=== PATIENT | female | born 1945 | race Caucasian/White ===

== ENCOUNTER → 2017-08-22 | Outpatient (CLI) | payer OTHER ==
[~2017-08-22] MED LIST: ACCUNEB SO1.25 MG/1; ADULT LOW DOSE81 MG PO; ALDACTONE25 MG PO; ALLERGY PLUS-S1 EACH PO; ASPIRIN EC81 M1 PO; ATORVASTATIN CA40 MG PO; AUGMENTIN 500-1 EACH PO; AUGMENTIN 875875 MG; BENADRYL25 MG PO; BENTYL 10 MG CA10 M1 PO; BRILINTA90 MG PO; CALCIUM 600 +1 EA11 PO; CALCIUM PO; CENTRUM SILVER1 EAC4 PO; CIPRO500 MG PO; CLARITIN10 MG PO; COMPAZINE10 MG PO; COREG3.125 MG PO; COREG6.25 MG PO; COUMADIN 5 MG TA5 M1 PO; DILTIAZEM 24HR360 M1 PO; DILTIAZEM 24HR420 MG PO; ENOXAPARIN100 MG/11 SUBQ; FENTANYL 1100 MCG/HR TRANSDERM; FENTANYL PATCH75 MCG TP; FISH OIL 1,001000 M2 PO; FISH OIL 1,001000 MG PO; FISH OIL 500 M1 EAC2 PO; FISH OIL500 MG PO; FLORINEF ACETA0.1 MG PO; FLUOXETINE HCL40 MG PO; GLUCOPHAGE850 MG PO; GLUCOTROL XL10 MG PO; HYDROCODON-ACE1 EA11 PO; HYDROCODON-ACE1 EACH PO; HYDROCODONE-AP1 EAC6 PO; HYTRIN 1 MG CAP1 MG; HYTRIN 5 M5 MG/1 CAP PO; INDERAL XL120 MG PO; IRON325 PO; K-DUR 20 MEQ T20 MEQ PO; K-DUR10 MEQ PO; LASIX 40 MG TAB40 M2 PO; LISINOPRIL10 MG PO; LISINOPRIL40 MG PO; LOPRESSOR25 PO; MAGNESIUM OXID400 MG PO; MAGNESIUM400 MG PO; MAGOX 400400 MG PO; MOBIC15 MG PO; MULTIVITAMINS1 EAC7 PO; MYSOLINE250 M1 PO; MYVITALIFE1 EACH PO; NEURONTIN 300300 M1 PO; NITROGLYCERIN0.4 MG SUBLING; NORCO 5-325 TA1 EACH PO; NOVOLOG100 UNIT/1 SQ; NYSTATIN 1100000 U/M TOP; OMEGA-31000 M1 PO; OMEPRAZOLE40 MG PO; PERCOCET PO; POTASSIUM20 PO; PRILOSEC40 MG PO; PRIMIDONE 250M250 M1 PO; PRIMIDONE50 MG PO; PRINIVIL40 MG PO; PROAIR HFA8.5 GM INH; PROZAC 20 MG20 M1 PO; PROZAC40 MG PO; QUESTRAN LIGHT P4 GM; QUESTRAN PACKET4 GM PO; REQUIP4 MG PO; SIMVASTATIN40 MG PO; TESSALON PERLE100 MG; TESSALON PERLE100 MG PO; THERA-M CAPLET1 EAC1 PO; TIAZAC420 MG PO; TOPROL XL25 MG PO; VITAMIN B-12500 MCG PO; WARFARIN SODIUM5 MG PO; ZETIA10 MG PO; [UNRECOGNIZED DRUG - OTHER]
== END ==
LOC: M.WC 02:13
DX: E11.622 Type 2 diabetes mellitus with other skin ulcer (principal); L98.491 Non-pressure chronic ulcer of skin of other sites limited to breakdown of skin; L89.893 Pressure ulcer of other site, stage 3; E11.65 Type 2 diabetes mellitus with hyperglycemia; I11.0 Hypertensive heart disease with heart failure; I50.9 Heart failure, unspecified; I25.10 Atherosclerotic heart disease of native coronary artery without angina pectoris; E78.2 Mixed hyperlipidemia; K21.9 Gastro-esophageal reflux disease without esophagitis; M19.90 Unspecified osteoarthritis, unspecified site; G47.30 Sleep apnea, unspecified; J45.909 Unspecified asthma, uncomplicated; F32.9 Major depressive disorder, single episode, unspecified

== ENCOUNTER → 2017-09-05 | Outpatient (CLI) | payer OTHER | LOC: M.WC 02:22 | DX: L89.893 Pressure ulcer of other site, stage 3 (principal); E11.622 Type 2 diabetes mellitus with other skin ulcer; L98.491 Non-pressure chronic ulcer of skin of other sites limited to breakdown of skin; E78.2 Mixed hyperlipidemia; J45.909 Unspecified asthma, uncomplicated; M19.90 Unspecified osteoarthritis, unspecified site; K21.9 Gastro-esophageal reflux disease without esophagitis; I11.0 Hypertensive heart disease with heart failure; I50.9 Heart failure, unspecified; I25.10 Atherosclerotic heart disease of native coronary artery without angina pectoris; G47.30 Sleep apnea, unspecified; F32.9 Major depressive disorder, single episode, unspecified; Z68.35 Body mass index [BMI] 35.0-35.9, adult ==

== ENCOUNTER → 2017-09-12 | Outpatient (CLI) | payer OTHER | LOC: M.WC 01:41 | DX: L89.93 Pressure ulcer of unspecified site, stage 3 (principal); E11.622 Type 2 diabetes mellitus with other skin ulcer; L98.491 Non-pressure chronic ulcer of skin of other sites limited to breakdown of skin; E78.2 Mixed hyperlipidemia; J45.909 Unspecified asthma, uncomplicated; M19.90 Unspecified osteoarthritis, unspecified site; K21.9 Gastro-esophageal reflux disease without esophagitis; E78.5 Hyperlipidemia, unspecified; I11.0 Hypertensive heart disease with heart failure; I50.9 Heart failure, unspecified; I25.10 Atherosclerotic heart disease of native coronary artery without angina pectoris; G47.30 Sleep apnea, unspecified; F32.9 Major depressive disorder, single episode, unspecified; Z68.35 Body mass index [BMI] 35.0-35.9, adult ==

== ENCOUNTER → 2017-09-26 | Outpatient (CLI) | payer OTHER | LOC: M.WC 09-19 10:30 | DX: L89.893 Pressure ulcer of other site, stage 3 (principal); E11.622 Type 2 diabetes mellitus with other skin ulcer; L98.491 Non-pressure chronic ulcer of skin of other sites limited to breakdown of skin; I10 Essential (primary) hypertension; E78.2 Mixed hyperlipidemia; J45.909 Unspecified asthma, uncomplicated; M19.90 Unspecified osteoarthritis, unspecified site; K21.9 Gastro-esophageal reflux disease without esophagitis; E78.5 Hyperlipidemia, unspecified; I11.0 Hypertensive heart disease with heart failure; I50.9 Heart failure, unspecified; I25.10 Atherosclerotic heart disease of native coronary artery without angina pectoris; G47.30 Sleep apnea, unspecified; F32.9 Major depressive disorder, single episode, unspecified; Z68.35 Body mass index [BMI] 35.0-35.9, adult ==

== ENCOUNTER → 2017-10-17 | Outpatient (CLI) | payer OTHER | LOC: M.WC 10-10 10:00 | DX: E11.622 Type 2 diabetes mellitus with other skin ulcer (principal); L98.491 Non-pressure chronic ulcer of skin of other sites limited to breakdown of skin; L89.892 Pressure ulcer of other site, stage 2; E78.2 Mixed hyperlipidemia; B37.2 Candidiasis of skin and nail; J45.909 Unspecified asthma, uncomplicated; K21.9 Gastro-esophageal reflux disease without esophagitis; I11.0 Hypertensive heart disease with heart failure; I50.9 Heart failure, unspecified; I25.10 Atherosclerotic heart disease of native coronary artery without angina pectoris ==

== ENCOUNTER → 2018-02-25 | Outpatient (CLI) | payer OTHER ==
--- NOTE | 2018-02-25 16:15 | 2DMMODE ---
[place] [address] 2 D/M-MODE ECHOCARDIOGRAM Name: VICKI BONILLA Room: [facility]#: [id number] Admission: 02/25/18 Attend Phys: Екатерина Dyre, Discharge: Date of : 47 Date of Service: 02/25/18 1615 Report #: [id number] THIS REPORT FOR: //name// APPROVED REPORT Study performed: 02/25/2018 14:01:14 EXAM: Comprehensive 2D, Doppler, and color-flow Echocardiogram Patient Location: Out-Patient Status: routine BSA: 1.71 HR: 82 bpm BP: 114/57 mmHg Other Information Study Quality: Good Indications Aortic Valve Disease 2D Dimensions LVEF(%): 80.56 (>50%) IVSd: 10.84 (7-11mm) LVOT Diam: 20.08 (18-24mm) LVDd: 42.92 mm PWd: 9.95 (7-11mm) Ascending Ao: 30.73 (22-36mm) LVDs: 21.93 (25-40mm) Aortic Root: 25.31 mm Reinoso's LVEF: 80.56 % Volumes Left Atrial Volume (Systole) LA ESV Index: 22.00 mL/m2 Aortic Valve AoV Peak Boone.: 2.07 m/s AO Peak Gr.: 17.17 mmHg LVOT Max P.57 mmHg AO Mean Gr.: 9.52 mmHg LVOT Mean P.95 mmHg LVOT Max V: 0.94 m/s AO V2 VTI: 46.20 cm LVOT Mean V: 0.65 m/s KASHMIR (VTI): 1.71 cm2 LVOT V1 VTI: 24.90 cm Mitral Valve E/A Ratio: 0.68 MV Decel. Time: 211.34 [place] [address] 2 D/M-MODE ECHOCARDIOGRAM Name: VICKI BONILLA Nitish Room: [facility]#: [id number] Admission: 02/25/18 Attend Phys: Екатерина Dyer, Discharge: Date of : 47 Date of Service: 02/25/18 1615 Report #: [id number] MV E Max Boone.: 0.85 m/s MV PHT: 61.29 ms MVA (PHT): 3.59 cm2 TDI E/Lateral E': 8.50 E/Medial E': 9.44 Medial E' Boone.: 0.09 m/s Lateral E' Boone.: 0.10 m/s Pulmonary Valve PV Peak Boone.: 1.24 m/s PV Peak Gr.: 6.16 mmHg Tricuspid Valve RAP Estimate: 5.00 mmHg TR Peak Gr.: 29.85 mmHg RVSP: 34.85 mmHg PA Pressure: 34.85 mmHg Left Ventricle The left ventricle is normal size. There is normal LV segmental wall motion. Mild concentric left ventricular hypertrophy. Left ventricular systolic function is normal. The left ventricular ejection fraction is within the normal range. LVEF is 60-65%. Grade I - abnormal relaxation pattern. Right Ventricle The right ventricle is normal size. The right ventricular systolic function is normal. Atria Left atrium is borderline dilated. The right atrium size is normal. Aortic Valve Aortic valve is mildly calcified. No aortic regurgitation is present. Mild aortic stenosis. Mitral Valve The mitral valve is normal in structure. Mild mitral regurgitation. No evidence of mitral valve stenosis. Tricuspid Valve The tricuspid valve is normal in structure. Mild tricuspid regurgitation. Pulmonic Valve The pulmonary valve is normal in structure. [place] [address] 2 D/M-MODE ECHOCARDIOGRAM Name: VICKI BONILLA Room: [facility]#: [id number] Admission: 02/25/18 Attend Phys: Екатерина Dyer, Discharge: Date of : 47 Date of Service: 02/25/18 1615 Report #: [id number] valvular regurgitation. Great Vessels The aortic root is normal in size. IVC is normal in size and collapses with >50% inspiration Pericardium There is no pericardial effusion. <Conclusion> LVEF is 60-65%. There is normal LV segmental wall motion. Mild concentric left ventricular hypertrophy. Left atrium is borderline dilated. Mild aortic stenosis. No aortic regurgitation is present. Mild tricuspid regurgitation. <ELECTRONICALLY SIGNED> By: Sony Bolton MD, FACC 02/25/18 1615 1615 1615 Sony Bolton MD, FACC /INF
== END ==
LOC: M.CRD 13:47
DX: I08.1 Rheumatic disorders of both mitral and tricuspid valves (principal); I25.10 Atherosclerotic heart disease of native coronary artery without angina pectoris; I42.9 Cardiomyopathy, unspecified

== ENCOUNTER → 2019-10-07 | Outpatient (CLI) | payer MEDICARE ==
--- NOTE | 2019-10-07 14:41 | 2DMMODE ---
[place] [address] 2 D/M-MODE ECHOCARDIOGRAM Name: VICKI BONILLA Room: [facility].#: [id number] Admission: 10/07/19 Attend Phys: Neeraj Mercado MD Discharge: Date of : 47 Date of Service: 10/07/19 1440 Report #: [id number] THIS REPORT FOR: cc: Jabier Justin MD, K. Gay MD Holkins, John M. MD [facility] ~ APPROVED REPORT Study performed: 10/07/2019 12:58:40 EXAM: Comprehensive 2D, Doppler, and color-flow Echocardiogram Patient Location: Out-Patient BSA: 1.79 HR: 60 bpm BP: 140/80 mmHg Other Information Study Quality: Fair Indications Atrial Fibrillation 2D Dimensions IVSd: 12.06 (7-11mm) LVOT Diam: 19.41 (18-24mm) LVDd: 41.54 mm PWd: 10.48 (7-11mm) Ascending Ao: 31.16 (22-36mm) LVDs: 23.19 (25-40mm) Aortic Root: 25.54 mm Volumes Left Atrial Volume (Systole) LA ESV Index: 19.50 mL/m2 Aortic Valve AoV Peak Boone.: 1.91 m/s AO Peak Gr.: 14.54 mmHg LVOT Max P.50 mmHg AO Mean Gr.: 7.98 mmHg LVOT Mean P.78 mmHg LVOT Max V: 0.94 m/s AO V2 VTI: 45.62 cm LVOT Mean V: 0.62 m/s KASHMIR (VTI): 1.51 cm2 LVOT V1 VTI: 23.34 cm Mitral Valve E/A Ratio: 0.61 [place] [address] 2 D/M-MODE ECHOCARDIOGRAM Name: VICKI BONILLA [id number] Admission: 10/07/19 Attend Phys: Neeraj Mercado MD Discharge: Date of : 47 Date of Service: 10/07/19 1440 Report #: [id number] MV Decel. Time: 236.20 ms MV E Max Boone.: 0.59 m/s MV PHT: 68.50 ms MVA (PHT): 3.21 cm2 TDI E/Lateral E': 6.56 E/Medial E': 5.36 Medial E' Boone.: 0.11 m/s Lateral E' Boone.: 0.09 m/s Pulmonary Valve PV Peak Boone.: 1.00 m/s PV Peak Gr.: 3.97 mmHg Tricuspid Valve RAP Estimate: 5.00 mmHg TR Peak Gr.: 20.23 mmHg RVSP: 25.23 mmHg PA Pressure: 25.23 mmHg Left Ventricle The left ventricle is normal size. There is normal LV segmental wall motion. There is normal left ventricular wall thickness. Left ventricular systolic function is normal. The left ventricular ejection fraction is within the normal range. LVEF is 55-60%. Grade I - abnormal relaxation pattern. Right Ventricle The right ventricle is normal size. The right ventricular systolic function is normal. Atria The left atrium size is normal. The right atrium size is normal. Aortic Valve Moderate aortic valve sclerosis. No aortic regurgitation is present. No hemodynamically significant valvular aortic stenosis. Mitral Valve Mild mitral annular calcification. There is no mitral valve regurgitation noted. No evidence of mitral valve stenosis. Tricuspid Valve The tricuspid valve is normal in structure. Mild tricuspid regurgitation[place] [address] 2 D/M-MODE ECHOCARDIOGRAM Name: VICKI BONILLA Room: [facility]#: [id number] Admission: 10/07/19 Attend Phys: Neeraj Mercado MD Discharge: Date of : 47 Date of Service: 10/07/19 1440 Report #: [id number] The pulmonary valve is normal in structure. Mild pulmonic regurgitation. Great Vessels The aortic root is normal in size. IVC is normal in size and collapses >50% with inspiration. Pericardium There is no pericardial effusion. <Conclusion> The left ventricle is normal size. There is normal left ventricular wall thickness. Left ventricular systolic function is normal. The left ventricular ejection fraction is within the normal range. LVEF is 55-60%. Grade I - abnormal relaxation pattern. The right ventricle is normal size. The left atrium size is normal. Moderate aortic valve sclerosis. No aortic regurgitation is present. No hemodynamically significant valvular aortic stenosis. Mild mitral annular calcification. There is no mitral valve regurgitation noted. No evidence of mitral valve stenosis. The tricuspid valve is normal in structure. Mild tricuspid regurgitation. IVC is normal in size and collapses >50% with inspiration. There is no pericardial effusion. There is normal LV segmental wall motion. <ELECTRONICALLY SIGNED> By: David De La Cruz MD, FACC 10/07/19 1440 1440 1440 David De La Cruz MD, FACC /INF
== END ==
LOC: M.CRD 12:54
DX: I08.3 Combined rheumatic disorders of mitral, aortic and tricuspid valves (principal); I48.91 Unspecified atrial fibrillation

== ENCOUNTER 2020-03-28 21:45 | Inpatient (IN) | payer MEDICARE ==
[~2020-03-28] VITALS: Ht 139.7 cm; Wt 99.8 kg
[~2020-03-28 21:45] MED LIST changes: +DURAGESIC1 EAC3 TRANSDERM; -FENTANYL 1100 MCG/HR TRANSDERM
[2020-03-28 21:52] VITALS: BP 143/93
[2020-03-28 22:48] LABS: HEMATOCRIT 40.3 % (37.0-47.0); HEMOGLOBIN 13.7 gm/dL (12.0-15.0); MCH 32.7 pg (26.0-34.0); MCHC 34.1 g/dL (28.0-37.0); MCV 95.9 fL (80.0-100.0); MPV 7.2 fl. (7.2-11.1); NUCLEATED RBCS 0 /100WBC; PLATELET COUNT* 201 thou/uL (150-400); RDW-CV 13.8 % (10.5-14.5); WBC 10.7 thou/uL (4.0-11.0)
[2020-03-28 22:58] LABS: CALCIUM 9.1 mg/dL (8.5-10.1); CREATININE 1.1 mg/dL (0.6-1.3); POTASSIUM 4.1 mmol/L (3.5-5.1)
[2020-03-28 23:08] LABS: INR 1.1; PROTIME 11.3 Seconds (9.20-11.50)
[2020-03-28 23:11] LABS: ALBUMIN 3.4 g/dL (3.4-5.0); MAGNESIUM 1.6 mg/dL (1.8-2.4); TOTAL BILIRUBIN 0.4 mg/dL (<0.1-1.0)
[2020-03-28 23:28] LABS: ABSOLUTE EOSINOPHILS 0.1 thou/uL (0.0-0.7); ABSOLUTE LYMPHOCYTES 0.6 thou/uL (0.8-5.3); ABSOLUTE MONOCYTES 0.6 thou/uL (0.0-1.2); ABSOLUTE NEUTROPHILS 9.3 thou/uL (1.6-8.1)
[2020-03-28 23:29] LABS: PLATELET ESTIMATE ADEQUATE
[2020-03-29 01:05] LABS: URINE BILIRUBIN NEGATIVE (Negative); URINE BLOOD 3+ (Negative); URINE CLARITY CLEAR; URINE COLOR YELLOW; URINE GLUCOSE-RANDOM NEGATIVE (Negative); URINE KETONES NEGATIVE (Negative); URINE LEUKOCYTES-REFLEX NEGATIVE (Negative); URINE NITRITE-REFLEX NEGATIVE (Negative); URINE PROTEIN 2+ (Negative); URINE SPECIFIC GRAVITY <= 1.005 (1.005-1.030); URINE UROBILINOGEN 0.2 E.U./dl (0.2-1.0)
[2020-03-29 02:00] LABS: COARSE GRANULAR CASTS 0-3 Few /LPF (None Seen); SQUAMOUS 0-3 Few /LPF (0-3)
[2020-03-29 02:01] LABS: AMORPHOUS URATES Few /LPF (None Seen); BACTERIA-REFLEX 1-9 Few /HPF (None Seen); URINE RBC 3-10 Few /HPF (0-2); URINE WBC-REFLEX 0-5 Rare /HPF (0-5)
[2020-03-29 03:27] VITALS: BP 143/89
[2020-03-29 04:00] VITALS: BP 142/88
--- NOTE | 2020-03-29 08:01 | NUR ---
RECEIVED REPORT FROM CARLOS TRACEY. PT TRANSFERRED TO 209. PT A&OX4. VSS. 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 ADMISSION HISTORY AND PHYSICAL ASSESSMENT COMPLETED AND CHARTED. ORIENTED TO ROOM & CALL LIGHT. PT ON O2 AT 2L NC. PT TRACING SR ON TELE. PT WITH WOUNDS ON BILATERAL GROIN, LEFT HIP, LEFT BUTTOCK &SACRAL-CLEANED & PAT DRY. PHOTOGRAPH TAKEN AND COVERED WITH MEPILEX. WOUND CARE CONSULT. FALL PRECAUTIONS IN PLACE. CALL LIGHT WITHIN REACH
[2020-03-29 08:41] VITALS: BP 122/85
[2020-03-29 09:21] LABS: CHOLESTEROL 179 mg/dL (<200); HDL CHOLESTEROL 59 mg/dL (>40); LDL CHOLESTEROL 111 mg/dL (<100); TRIGLYCERIDE 46 mg/dL (<150); VLDL 9 mg/dL (<40)
[2020-03-29 09:23] LABS: SERUM ASSESSMENT Clear
--- NOTE | 2020-03-29 09:47 | EKG ---
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
--- NOTE | 2020-03-29 09:48 | EKG ---
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1945 Requested By: Екатерина Dyer Order Number: [id number] Reading MD: Neeraj Mercado Measurements Intervals [place] Rate: 101 P: 50 [place]: 159 QRS: -71 QRSD: 81 T: 228 QT: 401 QTc: 520 Interpretive Statements Sinus tachycardia with short pr interval Consider right atrial enlargement Inferior infarct, old Probable anterior infarct, age indeterminate Prolonged QT interval Baseline wander in lead(s) V1 Compared to ECG 03/28/2020 22:50:42 Prolonged QT interval now present Myocardial infarct finding still present Electronically Signed On 03-29-2020 9:48:13 CDT by Neeraj Mercado [email or web address] <ELECTRONICALLY SIGNED> By: Neeraj Mercado MD, [facility] 03/29/20947 9 9 Neeraj Mercado MD, [facility] /EPI
--- NOTE | 2020-03-29 11:47 | NUR ---
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 H/o CHF, HTN, back pain d/t sciatica and herniated disc. Seen for pressure ulcers, bilat groin, Lt hip, Lt buttock. RD ordered Ferny for wound healing. Labs: BG elevated 206-148, alb 3.4. Heart Healthy diet. Wt has increased over the years, but is near usual range, 215#. Meds noted. Altered nutrition-related lab values R/T glucose AEB labs above. GOALS: tight BG control, Ferny BID for wound healing. Consider Mild risk.
--- NOTE | 2020-03-29 12:23 | 2DMMODE ---
[place] [address] 2 D/M-MODE ECHOCARDIOGRAM Name: VICKI BONILLA Room: [address] ADM IN R.#: [id number] Admission: 03/29/20 Attend Phys: Aston Long, Discharge: Date of : 47 Date of Service: 03/29/20 1223 Report #: [id number] THIS REPORT FOR: cc: Jabier Justin MD, K. Gay MD Blick,Neeraj Prieto MD [facility] ~ APPROVED REPORT Study performed: 03/29/2020 09:54:59 EXAM: Limited 2D Echocardiogram Patient Location: In-Patient Room #: [facility] Status: routine BSA: 1.81 HR: 100 bpm BP: 122/85 mmHg Rhythm: NSR Other Information Study Quality: Good Indications Acute IN Left Ventricle Left ventricle is mildly dilated. severe hypokinesis of the mid and distal anteroseptal wall and apex There is normal left ventricular wall thickness. Left ventricular systolic function is mildly decreased. LVEF is 25-30%. Right Ventricle The right ventricle is normal size. The right ventricular systolic function is normal. Atria The left atrium size is normal. The right atrium size is normal. Aortic Valve Moderate aortic valve sclerosis. Mitral Valve Moderate mitral annular calcification. The mitral valve [place] [address] 2 D/M-MODE ECHOCARDIOGRAM Name: VICKI BONILLA Room: [address] IN M.R.#: [id number] Admission: 03/29/20 Attend Phys: Aston Long, Discharge: Date of : 47 Date of Service: 03/29/20 1223 Report #: [id number] Tricuspid Valve The tricuspid valve is normal in structure. Pulmonic Valve Pulmonic valve is not well visualized. Great Vessels The aortic root is normal in size. IVC is normal in size and collapses >50% with inspiration. Pericardium There is no pericardial effusion. <Conclusion> LVEF is 25-30%. severe hypokinesis of the mid and distal anteroseptal wall and apex Moderate aortic valve sclerosis. <ELECTRONICALLY SIGNED> By: Neeraj Mercado MD, FACC 03/29/20 1223 122 22 Neeraj Mercado MD, FACC /INF
[2020-03-29 13:04] VITALS: BP 157/72
--- NOTE | 2020-03-29 13:50 | NUR ---
Pt is A&O. Resides at home with her cousin. Pt assists with ADLs, completes IADLs. Pt uses a walker or wc for mobility. No home o2. Pt has a lift chair recliner. Hx of [facility]. Hx of [facility]. Supportive son. PT/OT evals ordered. Pt is hopeful that [place] be able [place], CM to discuss dispo once therapy evals completed. Pt to have Echo today. Following.
--- NOTE | 2020-03-29 16:06 | NUR ---
WOUND NURSE: PATIENT SEEN TO ADDRESS 2 WOUND OPENINGS IN EACH GROIN. BOTH WITH RED, NONGRANULATING TISSUE IN THE WOUND BEDS, SMALL AMOUNT OF SEROUSANGUINOUS DRAINAGE. YEAST ODER IN IN INGUINAL FOLDS. CLEANSED WITH WOUND CLEANSER AND GAUZE, APPLIED AQUACEL AG UNDER BORDERED FOAM DRESSING. THIS TO BE CHANGED 3X/WEEK AND PRN. PATIENT INSTRUCTED ON REPORTABLE S/S TO REPORT IF OCCURS. PATIENT STATES SHE UNDERSTANDS.
[2020-03-29 17:08] VITALS: BP 94/51
--- NOTE | 2020-03-29 19:01 | NUR ---
PT IS ALERT AND ORIENTED X3-4 FORGETFUL AT TIMES 2L NC SOA NOTED RLE PAIN WITH IMMOBILIZER, ORDER FOR PRN IMMOBILIZER NOW BUT PT IS VERY WEAK AND CANNOT USE THAT LEG TO AMBULATE OR MOVE CONT WITH SCHEDULED PAIN MEDS AND FENTANYL PATCH SON CAME TO VISIT CALL LIGHT IN REACH
[2020-03-30] VITALS: BP 89/44
--- NOTE | 2020-03-30 02:10 | NUR ---
ASSUMED CARE OF PT At 1900. PT IS ALERT AND ORIENTED. VSS. DEBORAH. PT IS A Q2 TURN BUT SHE REFUSES TO TURN. PT EDUCATED ON THE CONSEQUENCES OF NOT TURNING. PT CONTINUES TO REFUSE BEING TURNED. PT HAS A ADLER IN PLACE. PT IS IN SINUS RYTHM ON THE TELEMETRY. PT IS RESTING COMFORTABLY IN BED. RESPIRATIONS ARE EVEN AND NONLABORED. WILL CONTINUE TO MONITOR PT.
[2020-03-30 04:00] VITALS: BP 96/47
--- NOTE | 2020-03-30 11:34 | NUR ---
ASSUMED CARE OF PATIENT THIS AM AT 0730. PATIENT IS ALERT AND ORIENTED X 4. SHE DENIES PAIN THIS AM. TELE SHOWS NSR. PATIENT ENCOURAGED TO TURN Q 2 HRS AND WITH ADLS. WILL CONTINUE TO MONITOR PATIENT COMFORT. NO FALLS OR INJURY.
[2020-03-30 12:16] VITALS: BP 97/45
--- NOTE | 2020-03-30 12:53 | NUR ---
CM spoke with Pt and cousin in room. Acute rehab consult placed. Therapies to eval. Pt open to ARU, but refuses skilled, cousin wants what is best for Pt, even if it is skilled. Will await therapy evals. Per Pt, if no ARU, then home with HH. Cousin is available at [facility].
[2020-03-30 13:07] VITALS: BP 97/45
[2020-03-30 16:25] VITALS: BP 100/40
[2020-03-30 19:30] VITALS: BP 103/56
[2020-03-31] VITALS (7 sets, daily range): BP systolic 90–137; BP diastolic 41–63
--- NOTE | 2020-03-31 05:40 | NUR ---
PT SLEPT WELL THIS SHIFT. ALERT AND ORIENTED. VSS ON 2L O2. MEDS GIVEN ORDERED. PAIN MEDS GIVEN THIS SHIFT. PT REFUSED Q2 TURNS THIS SHIFT. EDUCATION PROVIDED. FALL PRECAUTION IN PLACE. ADLER FOR VOIDING. WILL CONTINUE TO MONITOR.
[2020-03-31 08:10] LABS: CALCIUM 9.2 mg/dL (8.5-10.1); CREATININE 1.4 mg/dL (0.6-1.3); POTASSIUM 4.8 mmol/L (3.5-5.1)
[2020-03-31] MEDS ORDERED: CARVEDILOL3.125 MG PO (09:47)
[2020-03-31] MEDS ORDERED: GLUCOTROL5 MG PO (09:47)
[2020-03-31] MEDS ORDERED: LISINOPRIL2.5 MG PO (09:47)
[2020-03-31] MEDS ORDERED: DEMADEX20 MG PO (09:47)
--- NOTE | 2020-03-31 11:27 | NUR ---
Pt medically stable to dc, spoke with , plan was to dc home with HH, CM went to speak with Pt and she stated that she wants to work with PT first. Pt does not qualify for acute rehab, would need skilled, Pt had been adament about not going to skilled, but wavered today when CM informed for dc. PT to see this morning, plan home later with HH, unless Pt opts for skilled. Following.
--- NOTE | 2020-03-31 14:52 | NUR ---
CM spoke with Pt's cousin, cousin reports covid exposure and need to quarantine for 14 days, to be tested tomorrow, so Pt is unable to return to the home, because Pt is not independent. Discussed with Pt, Pt now in agreement with going to skilled, faxed referral to [facility] per Pt's request, facility able to accept, pending insurance auth. CM updated Pt's cousin.
--- NOTE | 2020-03-31 17:31 | NUR ---
PATIENT HAS BEEN ON BEDREST TODAY. SHE DOES HAVE A ADLER AND USES THE BEDPAN FOR BOWEL MOVEMENTS. SHE HAD A LARGE BM TODAY. SHE USES HER CALL LIGHT TO MAKE HER NEEDS KNOWN. SHE HAS BEEN REFUSING TO TURN TODAY AND I DISCUSSED IT WITH HER AND EXPLAINED TO HER THAT SHE WAS GOING TO GET BED SORES IF WE DONT TURN HER. SHE CONTINUES TO REFUSE. I WAS TOLD IN REPORT THAT SHE WAS REFUSING TO TURN ALSO. SHE DOES HAVE A PILLOW UNDER HER LEGS TO KEEP HER HEELS OFF THE BED. SHE IS ALERT AND ORIENTED X 4 AND DOES USE THE CALL LIGHT TO MAKE HER NEEDS KNOWN.
[2020-04-01] VITALS: BP 129/78
[2020-04-01 04:00] VITALS: BP 115/62
[2020-04-01 05:24] LABS: CREATININE 1.3 mg/dL (0.6-1.3); POTASSIUM 4.5 mmol/L (3.5-5.1)
--- NOTE | 2020-04-01 07:04 | NUR ---
PT WAS UP ALL NIGHT WATCHING TV. HER CHOICE. ALERT AND ORIENTED. VSS ON 2L. PT ALLOWED SOME TURNS THIS SHIFT. MEDS GIVEN ORDERED. FALL [PRECAUTION IN PLACE. ANTICIPATING DC TO [facility] TODAY. WILL CONTINUE TO MONITOR.
[2020-04-01 08:00] VITALS: BP 154/76
[2020-04-01 10:35] VITALS: BP 97/45
--- NOTE | 2020-04-01 10:35 | NUR ---
RE: CHF medication education. Met with the pt to discuss heart failure medication. Discussion focues primarily on carvedilol, furosemide, spironolactone and sacubitril/valsartan. We discussed rationale for therapies and importance of compliance with prescribed regimen. We reviewed possible side effects and potential management strategies. Pt expressed understanding of issues discussed. Left medication information sheet with patient. Provided pharmacy contact information for any further questions or issues. Thank you.
--- NOTE | 2020-04-01 10:56 | NUR ---
Pt M/s. CM spoke with liaison from [facility], continue to await insurance auth for skilled. Following.
[2020-04-01 16:00] VITALS: BP 122/77
[2020-04-01 20:00] VITALS: BP 133/56
[2020-04-02 07:25] VITALS: BP 97/45
[2020-04-02 07:45] VITALS: BP 146/86
[2020-04-02 08:20] VITALS: BP 146/86
--- NOTE | 2020-04-02 14:50 | NUR ---
PATIENT DISCHARGED TO [facility]. REPORT CALLED TO ARIAN. PATIENT BELONGINGS PACKED. COPY OF CHART AND DISCHARGE PAPERS GIVEN TO TRANSPORTER. IV AND ADLER CATHETER DISCONTINUED ORDERED. PATIENT TAKEN BY AMBULANCE AT THIS TIME.
[2020-04-03] MEDS ORDERED: DURAGESIC1 EAC3 TRANSDERM (10:30)
[2020-04-03] MEDS ORDERED: PERCOCET PO (10:30)
--- NOTE | 2020-04-04 17:03 | NUR ---
RECEIVED VM FROM CHERRY VENEGAS (DARRYN) INQUIRING ABOUT HOW TO ADD PATIENT'S SON AN ALTERNATE TO DPOA IN THE EVENT CHERRY IS UNAVAILBLE. LEFT VM FOR CHERRY TO GIVE CM NAIL GALVANIZER A RETURN CALL TO EXPLAIN WHAT CAN BE DONE TO ADD THAT INFORMATION. WILL AWAIT RETURN CALL.
== END 2020-04-02 14:50 | DRG 559 ==
LOC: M.ERS 21:45 → M.2W 03-29 02:38 → M.TBA-ER 03-29 02:38 → M.2W 03-29 02:41 → M.3W 04-01 19:47
PROVIDERS: Emergency Medicine; Registered Nurse; ADMIT Internal Medicine; ATTEND Internal Medicine
PROC: 2W3LX1Z Immobilization of Right Lower Extremity using Splint (ICD-10-PCS; principal; 2020-03-29)
DX: M97.11XA Periprosthetic fracture around internal prosthetic right knee joint, initial encounter (principal); I21.4 Non-ST elevation (NSTEMI) myocardial infarction; I50.23 Acute on chronic systolic (congestive) heart failure; Z68.43 Body mass index [BMI] 50.0-59.9, adult; I42.9 Cardiomyopathy, unspecified; I13.0 Hypertensive heart and chronic kidney disease with heart failure and stage 1 through stage 4 chronic kidney disease, or unspecified chronic kidney disease; G89.29 Other chronic pain; G56.00 Carpal tunnel syndrome, unspecified upper limb; E11.9 Type 2 diabetes mellitus without complications; Z96.653 Presence of artificial knee joint, bilateral; M19.90 Unspecified osteoarthritis, unspecified site; E78.5 Hyperlipidemia, unspecified; N18.3 Chronic kidney disease, stage 3 (moderate); J45.909 Unspecified asthma, uncomplicated; I48.0 Paroxysmal atrial fibrillation; E66.9 Obesity, unspecified; S82.831A Other fracture of upper and lower end of right fibula, initial encounter for closed fracture; W18.39XA Other fall on same level, initial encounter; I25.10 Atherosclerotic heart disease of native coronary artery without angina pectoris; M54.30 Sciatica, unspecified side; E78.00 Pure hypercholesterolemia, unspecified; Z95.5 Presence of coronary angioplasty implant and graft; Z90.49 Acquired absence of other specified parts of digestive tract; Z79.899 Other long term (current) drug therapy; Z79.51 Long term (current) use of inhaled steroids; Z88.1 Allergy status to other antibiotic agents; Z88.2 Allergy status to sulfonamides; Z79.01 Long term (current) use of anticoagulants; Z79.4 Long term (current) use of insulin; Z03.818 Encounter for observation for suspected exposure to other biological agents ruled out; Y93.89 Activity, other specified; Y92.89 Other specified places as the place of occurrence of the external cause; Y99.8 Other external cause status

== ENCOUNTER 2020-09-08 09:13 | Emergency (ER) | payer MEDICARE ==
[~2020-09-08] VITALS: Ht 139.7 cm; Wt 95.3 kg
[~2020-09-08 09:13] MED LIST changes: +CARVEDILOL3.125 MG PO; +DEMADEX20 MG PO; +GLUCOTROL5 MG PO; +LISINOPRIL2.5 MG PO
[2020-09-08 11:14] VITALS: BP 129/40
== END 2020-09-08 12:08 | disposition home or self-care (01) ==
LOC: M.ERS 09:13
DX: M25.552 Pain in left hip (principal); M25.562 Pain in left knee; M25.572 Pain in left ankle and joints of left foot; I11.0 Hypertensive heart disease with heart failure; I50.9 Heart failure, unspecified; E11.9 Type 2 diabetes mellitus without complications; E78.5 Hyperlipidemia, unspecified; Z90.89 Acquired absence of other organs; Z79.899 Other long term (current) drug therapy; Z88.1 Allergy status to other antibiotic agents; Z88.2 Allergy status to sulfonamides; Z88.8 Allergy status to other drugs, medicaments and biological substances; W18.39XA Other fall on same level, initial encounter; Y93.89 Activity, other specified; Y92.89 Other specified places as the place of occurrence of the external cause; Y99.8 Other external cause status

== ENCOUNTER 2021-04-27 20:28 | Inpatient (IN) | payer MEDICARE ==
[~2021-04-27] VITALS: Ht 139.7 cm; Wt 104.3 kg
--- NOTE | ~2021-04-27 | CON ---
[address] [address] CONSULTATION Name: VICKI BONILLA Room: [place] [address] ADM IN M.R.#: [id number] Admission: 04/28/21 Attend Phys: Greta Borja MD Discharge: Date of : 47 Report #: [id number] THIS REPORT FOR: cc: Jabier Justin MD, K. Gay MD Arakelov, Alexandr V. MD ~ DATE OF CONSULTATION: 05/05/2021 REFERRING PHYSICIAN: Dr. Elliott. REASON FOR CONSULTATION: Hyponatremia. HISTORY OF PRESENT ILLNESS: The patient is a 75-year-old lady, admitted to the hospital on 04/28/2021 with complaints of not feeling well, having some shortness of breath. She was found to be in respiratory failure, also found to have pneumonia, UTI. She also has history of diabetes, hypertension, overall debility, essential tremor and obesity. So she was admitted, started on diuretics. Her creatinine on admission was 1.6 and improved down to 0.8, but today is up to 1.3 again and serum sodium is 125. I was consulted for acute kidney injury and hyponatremia. PAST MEDICAL HISTORY: She also has history of Takotsubo cardiomyopathy with decreased left ventricular ejection fraction in the past with some recovery of this now. SOCIAL HISTORY: No tobacco or alcohol abuse. FAMILY HISTORY: No history of renal disease. REVIEW OF SYSTEMS: Positive for overall weakness. PHYSICAL EXAMINATION: GENERAL: Awake, alert, oriented. VITAL SIGNS: Reviewed. NECK: Fatty. LUNGS: Decreased air movements. CARDIOVASCULAR: Regular rate. ABDOMEN: Obese. LOWER EXTREMITIES: No edema. ASSESSMENT: 1. Hyponatremia, likely due to hydrochlorothiazide and Aldactone. 2. Acute kidney injury, likely due to over diuresis. 3. History of Takotsubo [place] [address] CONSULTATION Name: VICKI BONILLA Room: [address] IN [facility]#: [id number] Admission: 04/28/21 Attend Phys: Greta Borja MD Discharge: Date of : 47 Report #: [id number] 4. Urinary tract infection. PLAN: Agree with holding diuretics. No need of IV fluids for now, but we may have to do it if she remains volume depleted. A chest x-ray from 05/03/2021 reveals some bibasilar infiltrates, but no evidence of fluid overload. So again, my plan is right now to just hold her diuretics and follow labs. I also ordered urine for sodium and osmolality. By: 1314 1343Ashauna Loving MD /nt
[2021-04-27 20:40] VITALS: BP 127/57
[2021-04-27] MEDS ORDERED: ASA81BEC PO (20:52)
[2021-04-27] MEDS ORDERED: ARICEPT10 M1 PO (20:53)
[2021-04-27] MEDS ORDERED: PROZAC40 MG PO (20:53)
[2021-04-27 20:54] LABS: HEMATOCRIT 36.3 % (37.0-47.0); HEMOGLOBIN 11.9 gm/dL (12.0-15.0); MCH 31.8 pg (26.0-34.0); MCHC 32.8 g/dL (28.0-37.0); MPV 6.4 fl. (7.2-11.1); NUCLEATED RBCS 0 /100WBC; PLATELET COUNT* 177 thou/uL (150-400); RBC 3.74 mil/uL (4.20-5.00); RDW-CV 13.9 % (10.5-14.5); WBC 14.5 thou/uL (4.0-11.0)
[2021-04-27] MEDS ORDERED: SINGULAIR 10 MG10 MG PO (20:54)
[2021-04-27] MEDS ORDERED: LEVO-T50 MCG PO (20:54)
[2021-04-27] MEDS ORDERED: LASIX 40 MG TAB40 MG PO (20:54)
[2021-04-27] MEDS ORDERED: KLOR-CON M2020 MEQ PO (20:55)
[2021-04-27 21:02] LABS: CALCIUM 8.7 mg/dL (8.5-10.1); CREATININE 1.6 mg/dL (0.6-1.3); POTASSIUM 5.2 mmol/L (3.5-5.1)
[2021-04-27 21:13] LABS: ALBUMIN 3.2 g/dL (3.4-5.0); MAGNESIUM 2.1 mg/dL (1.8-2.4); TOTAL BILIRUBIN 0.4 mg/dL (<0.1-1.0); TOTAL PROTEIN 7.2 g/dL (6.4-8.2)
[2021-04-27 21:16] LABS: ABSOLUTE LYMPHOCYTES 0.4 thou/uL (0.8-5.3); ABSOLUTE MONOCYTES 1.5 thou/uL (0.0-1.2); ABSOLUTE NEUTROPHILS 12.6 thou/uL (1.6-8.1); PLATELET ESTIMATE ADEQUATE
[2021-04-28 00:42] LABS: URINE BILIRUBIN NEGATIVE (Negative); URINE BLOOD NEGATIVE (Negative); URINE CLARITY CLEAR; URINE COLOR YELLOW; URINE GLUCOSE-RANDOM NEGATIVE (Negative); URINE KETONES NEGATIVE (Negative); URINE NITRITE-REFLEX NEGATIVE (Negative); URINE PROTEIN NEGATIVE (Negative); URINE SPECIFIC GRAVITY 1.015 (1.005-1.030); URINE UROBILINOGEN 0.2 E.U./dl (0.2-1.0)
[2021-04-28 00:45] VITALS: BP 95/32
[2021-04-28 00:46] LABS: URINE LEUKOCYTES-REFLEX 2+ (Negative)
[2021-04-28 00:48] VITALS: BP 105/70
[2021-04-28 01:08] LABS: BACTERIA-REFLEX >30 Many /HPF (None Seen); CRYSTALS None Seen /LPF (None Seen); FINE GRANULAR CASTS 0-3 Few /LPF (None Seen); HYALINE CASTS 0-3 Few /LPF (None Seen); MUCUS 4-6 Moderate strn/LPF (None Seen); RENAL EPITHELIAL CELLS 0-3 Few /LPF (None Seen); SQUAMOUS 0-3 Few /LPF (0-3); URINE RBC 3-10 Few /HPF (0-2); URINE WBC-REFLEX >25 Many /HPF (0-5); WBC CLUMPS Few (None Seen)
[2021-04-28 04:00] VITALS: BP 98/43
--- NOTE | 2021-04-28 08:38 | EKG ---
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1945 Requested By: Flory Urias Order Number: [id number] MD: Neeraj Mercado Measurements Intervals [place] Rate: 86 P: 50 SD: 181 QRS: -42 QRSD: 92 T: 9 QT: 357 QTc: 427 Interpretive Statements Sinus rhythm Ventricular premature complex Inferior infarct, old Consider anterior infarct Compared to ECG 03/29/2020 08:30:41 Ventricular premature complex(es) now present Sinus tachycardia no longer present Short SD interval no longer present Prolonged QT interval no longer present Myocardial infarct finding still present Electronically Signed On 04-28-2021 8:38:41 CDT by Neeraj Mercado [email or web address] <ELECTRONICALLY SIGNED> By: Neeraj Mercado MD, [facility] 04/28/21837 32 32 Neeraj Mercado MD, [facility] /EPI
[2021-04-28 09:00] VITALS: BP 98/36
[2021-04-28 12:00] VITALS: BP 129/77
[2021-04-28] MEDS ORDERED: ADVAIR 500-501 EACH INH (17:15)
[2021-04-28 20:30] VITALS: BP 141/48
[2021-04-29] VITALS (7 sets, daily range): BP systolic 96–179; BP diastolic 50–79
[2021-04-29 05:14] LABS: HEMATOCRIT 35.8 % (37.0-47.0); HEMOGLOBIN 11.9 gm/dL (12.0-15.0); MCH 32.5 pg (26.0-34.0); MCHC 33.3 g/dL (28.0-37.0); MCV 97.5 fL (80.0-100.0); MPV 6.9 fl. (7.2-11.1); RBC 3.68 mil/uL (4.20-5.00); RDW-CV 14.1 % (10.5-14.5); WBC 9.8 thou/uL (4.0-11.0)
[2021-04-29 05:47] LABS: CALCIUM 9.4 mg/dL (8.5-10.1); CREATININE 1.2 mg/dL (0.6-1.3); POTASSIUM 4.6 mmol/L (3.5-5.1)
[2021-04-29 16:04] LABS: CALCIUM 8.9 mg/dL (8.5-10.1); CREATININE 1.1 mg/dL (0.6-1.3); PHOSPHORUS* 2.4 mg/dL (2.5-4.9)
[2021-04-29 17:01] LABS: BE 6.2 mmol/L (-2 to +3); pH 7.319 (7.340-7.450)
[2021-04-29 17:04] LABS: PCO2 68.8 mmHg (35.0-45.0)
[2021-04-30] VITALS: BP 144/58
[2021-04-30 00:01] LABS: BE 6.9 mmol/L (-2 to +3); PO2 102.1 mmHg (75.0-100.0); pH 7.303 (7.340-7.450)
[2021-04-30 00:05] LABS: PCO2 74.6 mmHg (35.0-45.0)
[2021-04-30 04:01] VITALS: BP 113/91
[2021-04-30 04:13] LABS: ABSOLUTE EOSINOPHILS 0.1 thou/uL (0.0-0.7); ABSOLUTE LYMPHOCYTES 0.6 thou/uL (0.8-5.3); ABSOLUTE MONOCYTES 0.8 thou/uL (0.0-1.2); ABSOLUTE NEUTROPHILS 6.1 thou/uL (1.6-8.1); BASOPHILS 0.2 %; EOSINOPHILS 1.7 %; HEMATOCRIT 31.7 % (37.0-47.0); HEMOGLOBIN 10.7 gm/dL (12.0-15.0); LYMPHOCYTES 7.3 %; MCH 32.5 pg (26.0-34.0); MCHC 33.8 g/dL (28.0-37.0); MCV 96.3 fL (80.0-100.0); MONOCYTES 10.4 %; MPV 6.6 fl. (7.2-11.1); NUCLEATED RBCS 0 /100WBC; PLATELET COUNT* 187 thou/uL (150-400); POLYS 80.4 %; RBC 3.29 mil/uL (4.20-5.00); RDW-CV 13.7 % (10.5-14.5); WBC 7.6 thou/uL (4.0-11.0)
[2021-04-30 04:21] LABS: ALBUMIN 2.6 g/dL (3.4-5.0); CALCIUM 9.4 mg/dL (8.5-10.1); CREATININE 1.1 mg/dL (0.6-1.3); POTASSIUM 4.3 mmol/L (3.5-5.1); TOTAL BILIRUBIN 0.3 mg/dL (<0.1-1.0); TOTAL PROTEIN 6.6 g/dL (6.4-8.2)
[2021-04-30] MEDS ORDERED: NEURONTIN 300M300 M2 PO (05:38)
[2021-04-30] MEDS ORDERED: GLIPIZIDE5 MG PO (06:55)
[2021-04-30] MEDS ORDERED: PERCOCET 7.5-31 EAC1 PO (06:57)
[2021-04-30] MEDS ORDERED: SPIRONOLACTONE25 MG PO (06:58)
[2021-04-30] MEDS ORDERED: TIZANIDINE HCL4 M2 PO (06:59)
[2021-04-30] MEDS ORDERED: ZYRTEC10 M5 PO (07:00)
[2021-04-30] MEDS ORDERED: PROTONIX40 M4 PO (07:02)
[2021-04-30 08:00] VITALS: BP 133/70
[2021-04-30 12:00] VITALS: BP 155/71
[2021-04-30 16:00] VITALS: BP 141/69
[2021-04-30 20:00] VITALS: BP 163/86
[2021-05-01] VITALS: BP 161/83
[2021-05-01 04:06] LABS: GLYCOHEMOGLOBIN (HGB A1C) 7.3 % (4.8-5.6)
[2021-05-01 04:17] LABS: ABSOLUTE EOSINOPHILS 0.2 thou/uL (0.0-0.7); ABSOLUTE LYMPHOCYTES 0.6 thou/uL (0.8-5.3); ABSOLUTE NEUTROPHILS 5.7 thou/uL (1.6-8.1); BASOPHILS 0.5 %; EOSINOPHILS 3.2 %; HEMATOCRIT 33.1 % (37.0-47.0); HEMOGLOBIN 10.8 gm/dL (12.0-15.0); LYMPHOCYTES 8.1 %; MCH 31.5 pg (26.0-34.0); MCHC 32.5 g/dL (28.0-37.0); MCV 96.7 fL (80.0-100.0); MONOCYTES 13.2 %; MPV 6.7 fl. (7.2-11.1); NUCLEATED RBCS 0 /100WBC; PLATELET COUNT* 200 thou/uL (150-400); RBC 3.42 mil/uL (4.20-5.00); RDW-CV 14.1 % (10.5-14.5); WBC 7.5 thou/uL (4.0-11.0)
[2021-05-01 04:20] LABS: BE 10.5 mmol/L (-2 to +3); pH 7.363 (7.340-7.450)
[2021-05-01 04:23] LABS: PCO2 69.7 mmHg (35.0-45.0); PO2 144.4 mmHg (75.0-100.0)
[2021-05-01 04:41] LABS: APTT 24.8 Seconds (25.0-31.3); PROTIME 10.6 Seconds (9.20-11.50)
[2021-05-01 04:44] VITALS: BP 155/89
[2021-05-01 04:50] LABS: ALBUMIN 2.7 g/dL (3.4-5.0); CALCIUM 10.4 mg/dL (8.5-10.1); CREATININE 0.8 mg/dL (0.6-1.3); POTASSIUM 4.2 mmol/L (3.5-5.1); TOTAL BILIRUBIN 0.3 mg/dL (<0.1-1.0); TOTAL PROTEIN 6.8 g/dL (6.4-8.2)
[2021-05-01 08:30] VITALS: BP 159/79
[2021-05-01 11:30] VITALS: BP 145/73
--- NOTE | 2021-05-01 14:40 | 2DMMODE ---
[place] [address] 2 D/M-MODE ECHOCARDIOGRAM Name: VICKI BONILLA Room: [facility]-1 ADM IN .R.#: [id number] Admission: 04/28/21 Attend Phys: Greta Borja, Discharge: Date of : 47 Date of Service: 05/01/21 1440 Report #: [id number] THIS REPORT FOR: cc: Jabier Justin MD, K. Gay MD Blick, David R. MD [facility] ~ APPROVED REPORT Study performed: 05/01/2021 11:53:10 EXAM: Comprehensive 2D, Doppler, and color-flow Echocardiogram Patient Location: In-Patient Room #: 227 Status: routine BSA: 1.86 HR: 90 bpm BP: 159/79 mmHg Rhythm: NSR Other Information Study Quality: Good Indications Dyspnea 2D Dimensions IVSd: 9.99 (7-11mm) LVOT Diam: 19.81 (18-24mm) LVDd: 46.96 mm PWd: 9.99 (7-11mm) Ascending Ao: 33.12 (22-36mm) LVDs: 27.29 (25-40mm) Aortic Root: 28.80 mm Aortic Valve AoV Peak Boone.: 2.09 m/s AO Peak Gr.: 17.43 mmHg LVOT Max P.05 mmHg AO Mean Gr.: 8.94 mmHg LVOT Mean P.16 mmHg LVOT Max V: 1.33 m/s AO V2 VTI: 34.91 cm LVOT Mean V: 0.81 m/s KASHMIR (VTI): 2.08 cm2 LVOT V1 VTI: 23.58 cm Mitral Valve E/A Ratio: 0.81 MV Decel. Time: 196.83 ms MV E Max Boone.: 0.92 m/[place] [address] 2 D/M-MODE ECHOCARDIOGRAM Name: VICKI BONILLA Room: [address] IN .R.#: [id number] Admission: 04/28/21 Attend Phys: Greta Borja, Discharge: Date of : 47 Date of Service: 05/01/21 1440 Report #: [id number] MV PHT: 57.08 ms MVA (PHT): 3.85 cm2 Pulmonary Valve PV Peak Boone.: 1.30 m/s PV Peak Gr.: 6.80 mmHg Tricuspid Valve RAP Estimate: 5.00 mmHg TR Peak Gr.: 38.92 mmHg RVSP: 43.00 mmHg PA Pressure: 43.00 mmHg Left Ventricle The left ventricle is normal size. There is normal LV segmental wall motion. There is normal left ventricular wall thickness. Left ventricular systolic function is normal. The left ventricular ejection fraction is within the normal range. LVEF is 55-60%. Grade I - abnormal relaxation pattern. Right Ventricle The right ventricle is normal size. The right ventricular systolic function is normal. Atria The left atrium size is normal. The right atrium size is normal. Aortic Valve Aortic valve is calcified. No aortic regurgitation is present. There is mild aortic valvular stenosis. Mitral Valve The mitral valve is normal in structure. There is no mitral valve regurgitation noted. No evidence of mitral valve stenosis. Tricuspid Valve The tricuspid valve is normal in structure. Mild tricuspid regurgitation. estimated pa pressure 45 mm Hg Pulmonic Valve Pulmonic valve is not well visualized. There is no pulmonic valvular regurgitation. Great Vessels The aortic root is normal in size. IVC is normal in size and collapses >50% [place] [address] 2 D/M-MODE ECHOCARDIOGRAM Name: VICKI BONILLA Room: [facility] IN [facility]#: [id number] Admission: 04/28/21 Attend Phys: Greta Borja, Discharge: Date of : 47 Date of Service: 05/01/21 1440 Report #: [id number] Pericardium There is no pericardial effusion. <Conclusion> LVEF is 55-60%. There is mild aortic valvular stenosis. Mild tricuspid regurgitation. estimated pa pressure 45 mm Hg <ELECTRONICALLY SIGNED> By: Neeraj Mercado MD, FAC 05/01/21 1440 1440 1440 Neeraj Mercado MD, FAC /INF
[2021-05-01 16:00] VITALS: BP 156/63
[2021-05-01 20:00] VITALS: BP 144/88
[2021-05-02] VITALS: BP 143/76
[2021-05-02 04:33] VITALS: BP 150/80
[2021-05-02 04:52] LABS: ABSOLUTE LYMPHOCYTES 0.6 thou/uL (0.8-5.3); ABSOLUTE MONOCYTES 0.6 thou/uL (0.0-1.2); ABSOLUTE NEUTROPHILS 5.3 thou/uL (1.6-8.1); BASOPHILS 0.3 %; EOSINOPHILS 0.2 %; HEMATOCRIT 33.6 % (37.0-47.0); HEMOGLOBIN 11.1 gm/dL (12.0-15.0); MCH 31.8 pg (26.0-34.0); MCHC 33.1 g/dL (28.0-37.0); MCV 95.8 fL (80.0-100.0); MONOCYTES 9.3 %; MPV 6.6 fl. (7.2-11.1); NUCLEATED RBCS 0 /100WBC; PLATELET COUNT* 201 thou/uL (150-400); POLYS 81.2 %; RDW-CV 13.6 % (10.5-14.5); WBC 6.5 thou/uL (4.0-11.0)
[2021-05-02 05:34] LABS: ALBUMIN 2.6 g/dL (3.4-5.0); CALCIUM 9.9 mg/dL (8.5-10.1); CREATININE 0.9 mg/dL (0.6-1.3); MAGNESIUM 1.3 mg/dL (1.8-2.4); POTASSIUM 3.8 mmol/L (3.5-5.1); TOTAL BILIRUBIN 0.4 mg/dL (<0.1-1.0); TOTAL PROTEIN 6.7 g/dL (6.4-8.2)
[2021-05-02 08:30] VITALS: BP 173/93
[2021-05-02 12:00] VITALS: BP 139/76
[2021-05-02 16:00] VITALS: BP 145/75
[2021-05-02 20:30] VITALS: BP 127/70
[2021-05-03 00:39] VITALS: BP 105/60
[2021-05-03 04:19] VITALS: BP 152/71
[2021-05-03 08:00] VITALS: BP 175/91
[2021-05-03 11:00] VITALS: BP 125/61
[2021-05-03 13:02] LABS: APTT 27.5 Seconds (25.0-31.3)
[2021-05-03 14:55] LABS: HEMATOCRIT 33.9 % (37.0-47.0); HEMOGLOBIN 11.4 gm/dL (12.0-15.0); MCH 32.2 pg (26.0-34.0); MCHC 33.6 g/dL (28.0-37.0); MCV 95.9 fL (80.0-100.0); NUCLEATED RBCS 0 /100WBC; PLATELET COUNT* 210 thou/uL (150-400); RBC 3.54 mil/uL (4.20-5.00); RDW-CV 13.7 % (10.5-14.5); WBC 6.9 thou/uL (4.0-11.0)
[2021-05-03 15:17] LABS: CALCIUM 10.5 mg/dL (8.5-10.1); POTASSIUM 3.9 mmol/L (3.5-5.1); TOTAL BILIRUBIN 0.4 mg/dL (<0.1-1.0); TOTAL PROTEIN 7.6 g/dL (6.4-8.2)
[2021-05-03 15:26] VITALS: BP 152/85
[2021-05-03 15:38] LABS: ABSOLUTE EOSINOPHILS 0.3 thou/uL (0.0-0.7); ABSOLUTE LYMPHOCYTES 1.4 thou/uL (0.8-5.3); ABSOLUTE MONOCYTES 0.5 thou/uL (0.0-1.2); ABSOLUTE NEUTROPHILS 4.7 thou/uL (1.6-8.1)
[2021-05-03 15:39] LABS: PLATELET ESTIMATE ADEQUATE
--- NOTE | 2021-05-03 17:35 | CON ---
[address] [address] CONSULTATION Name: VICKI BONILLA Room: [place] [address] ADM IN M.R.#: [id number] Admission: 04/28/21 Attend Phys: Greta Borja MD Discharge: Date of : 47 Report #: [id number] THIS REPORT FOR: cc: Jabier Justin MD, K. Gay MD Pervez, Adeel MD ~ DATE OF CONSULTATION: 05/01/2021 Consult has been requested by Dr. Moffett. INDICATION FOR CONSULTATION: Acute hypercarbic respiratory failure. HISTORY OF PRESENT ILLNESS: This is a 75-year-old female with past medical history as mentioned below. This does include a history of morbid obesity as well as bronchial asthma. She is reported to be a lifetime nonsmoker. She is not on oxygen or a CPAP or BiPAP at home long-term. Previously, she has had low left ventricular ejection fraction up to 30%. She does have a history of coronary artery disease; however, a lower left ventricular ejection fraction, per Cardiology service was more likely secondary to a stress-induced cardiomyopathy. The patient is now admitted on 04/28, presentation was with worsening weakness as well as shortness of breath and cough. She had altered mental status as well and was suspected of having a urinary tract infection. The patient was increasingly somnolent as well. The patient is able to provide only a limited history. REVIEW OF SYSTEMS: Obtained from the patient for 12 points is negative except as mentioned above. PAST MEDICAL HISTORY: Coronary artery disease status post stent, congestive heart failure; left ventricular ejection fraction up to 30% previously, suspected to be in fact from stress-induced cardiomyopathy; left ventricular ejection fraction now normalized, pulmonary artery systolic in the low 40s, morbid obesity, chronic back pain, bronchial asthma, tremors, colitis, bilateral knee surgery, status post tonsillectomy, left leg DVT, hypertension, hyperlipidemia, multiple falls, paroxysmal atrial fibrillation was considered to be too high risk for anticoagulation. SOCIAL HISTORY: Lifetime nonsmoker. No known history of heavy alcohol use or illegal drug use. CURRENT MEDICATIONS: List in [place] reviewed. HOME MEDICATIONS: List also in [facility] [place] [address] CONSULTATION Name: VICKI BONILLA Room: [address] IN [facility].#: [id number] Admission: 04/28/21 Attend Phys: Greta Borja MD Discharge: Date of : 47 Report #: [id number] FAMILY HISTORY: No pertinent family history. ALLERGIES: THEOPHYLLINE, GUAIFENESIN, SALSALATE. She has eye burning with doxycycline and blurry vision from erythromycin, likely this two are not allergies. SHE HAVE A RASH WITH SULFAMETHOXAZOLE. PHYSICAL EXAMINATION: GENERAL: She is slow to respond; however, is alert, awake and oriented. VITAL SIGNS: Pulse of 100 and a blood pressure 145/73. She is on 2 liters nasal cannula, is saturating in the low 90s around 93%, respiratory rate is around 18. She is afebrile with a temperature of 36.8. Body mass index 54. HEENT: Normocephalic and atraumatic. Pupils are equal and reactive. There is no throat erythema. Airway is Mallampati 4. NECK: Does not show raised JVP, asymmetry, mass or lymph nodes. CHEST: Symmetrical expansion on inspection and palpation. On auscultation, breath sounds are decreased to absent at bilateral lung bases. HEART: Regular. There is no murmur. ABDOMEN: Soft and nontender. LOWER EXTREMITIES: 2+ edema bilaterally. No calf tenderness. SKIN: Dry and intact. NEUROLOGIC: Moves all extremities bilaterally equally and spontaneously with no focal deficit identified. IMAGING: Chest x-rays from yesterday shows bilateral basilar opacities, likely pleural effusion and atelectasis. Infiltrate if present, will be masked by these findings. LABORATORY DATA: The patient's lab work is in [place] and this is also reviewed. Arterial blood gases show hypercarbic respiratory failure, which is acute on chronic. The patient's previous arterial blood gas from 2015 also shows a pCO2 of 53. ASSESSMENT AND PLAN: 1. Acute on chronic hypercarbic respiratory failure. The patient previously has not been on a BiPAP or Trilogy at home; however, there is pCO2 elevation on previous arterial blood gas going back up to 2015. Therefore, recommended setting up a Trilogy device upon discharge. Meanwhile, keep on BiPAP while sleep, while here. We will need to assess oxygen needs prior to discharge, may be off BiPAP when awake. 2. Fluid overload. I will go ahead and give her 2 doses of Lasix overnight. Reassess tomorrow. Likely will need more diuresis. We will need to watch her creatinine closely. She recently had acute renal failure. The patient likely has significant pleural effusions. We will define this better by doing a CT [address] [place] [address] CONSULTATION Name: VICKI BONILLA Room: [facility] ADM IN M.Nitish.#: [id number] Admission: 04/28/21 Attend Phys: Greta Borja MD Discharge: Date of : 47 Report #: [id number] chest without contrast. 3. Pulmonary infiltrate/possible UTI. CT as above. Currently on ceftriaxone. We will reassess once the CT is obtained. 4. Edema of lower extremities. Recommend also doing venous Dopplers, if the D-dimer is elevated. I ordered a D-dimer. The patient will be high risk of performing a CTA chest. Therefore for now, planning to hold off, but may need to be considered in case she fails to improve. 5. High aspiration risk. Agree with swallow evaluation, what is more important is that she should be sitting up when eating. 6. Hyperglycemia, on insulin sliding scale. 7. Recent acute renal failure earlier this admission. 8. Altered mental status and long-term narcotic use, suggest cutting back on narcotics/sedative medications to the extent feasible. 9. Deep venous thrombosis prophylaxis. She is on Lovenox. 10. Clostridium difficile prophylaxis. We will order Lactinex. Thanks for this consultation. <ELECTRONICALLY SIGNED> By: Balaji Hays MD 05/03/21 1735 1534 1940Balaji Hays MD /nt
[2021-05-03 20:00] VITALS: BP 140/68
[2021-05-04] VITALS: BP 101/43
[2021-05-04 04:00] VITALS: BP 126/65
[2021-05-04 04:34] LABS: ABSOLUTE EOSINOPHILS 0.2 thou/uL (0.0-0.7); ABSOLUTE LYMPHOCYTES 0.7 thou/uL (0.8-5.3); ABSOLUTE MONOCYTES 0.9 thou/uL (0.0-1.2); ABSOLUTE NEUTROPHILS 4.4 thou/uL (1.6-8.1); BASOPHILS 0.3 %; EOSINOPHILS 2.9 %; HEMATOCRIT 34.2 % (37.0-47.0); HEMOGLOBIN 11.5 gm/dL (12.0-15.0); LYMPHOCYTES 11.6 %; MCH 31.8 pg (26.0-34.0); MCHC 33.6 g/dL (28.0-37.0); MCV 94.6 fL (80.0-100.0); MONOCYTES 15.1 %; MPV 6.6 fl. (7.2-11.1); NUCLEATED RBCS 0 /100WBC; PLATELET COUNT* 219 thou/uL (150-400); POLYS 70.1 %; RBC 3.61 mil/uL (4.20-5.00); RDW-CV 13.6 % (10.5-14.5); WBC 6.3 thou/uL (4.0-11.0)
[2021-05-04 04:54] LABS: ALBUMIN 2.7 g/dL (3.4-5.0); CALCIUM 10.2 mg/dL (8.5-10.1); CREATININE 1.2 mg/dL (0.6-1.3); POTASSIUM 3.9 mmol/L (3.5-5.1); TOTAL BILIRUBIN 0.4 mg/dL (<0.1-1.0); TOTAL PROTEIN 6.9 g/dL (6.4-8.2)
[2021-05-04 05:18] LABS: BE 11.9 mmol/L (-2 to +3); PO2 84.9 mmHg (75.0-100.0); pH 7.479 (7.340-7.450)
[2021-05-04 05:19] LABS: PCO2 51.6 mmHg (35.0-45.0)
[2021-05-04 08:00] VITALS: BP 144/77
[2021-05-04 11:59] VITALS: BP 147/77
[2021-05-04 15:29] VITALS: BP 147/93
[2021-05-04 19:45] VITALS: BP 129/68
[2021-05-05] VITALS (7 sets, daily range): BP systolic 117–158; BP diastolic 64–83
[2021-05-05 13:02] LABS: ABSOLUTE BASOPHILS 0.1 thou/uL (0.0-0.2); ABSOLUTE EOSINOPHILS 0.1 thou/uL (0.0-0.7); ABSOLUTE LYMPHOCYTES 0.5 thou/uL (0.8-5.3); ABSOLUTE MONOCYTES 0.8 thou/uL (0.0-1.2); ABSOLUTE NEUTROPHILS 7.7 thou/uL (1.6-8.1); BASOPHILS 0.6 %; EOSINOPHILS 1.2 %; HEMATOCRIT 35.8 % (37.0-47.0); HEMOGLOBIN 12.1 gm/dL (12.0-15.0); LYMPHOCYTES 5.9 %; MCH 31.8 pg (26.0-34.0); MCHC 33.7 g/dL (28.0-37.0); MCV 94.2 fL (80.0-100.0); MONOCYTES 8.5 %; MPV 6.2 fl. (7.2-11.1); NUCLEATED RBCS 0 /100WBC; PLATELET COUNT* 232 thou/uL (150-400); POLYS 83.8 %; RDW-CV 13.7 % (10.5-14.5); WBC 9.2 thou/uL (4.0-11.0)
[2021-05-05 13:28] LABS: CALCIUM 10.8 mg/dL (8.5-10.1); CREATININE 1.3 mg/dL (0.6-1.3); MAGNESIUM 1.3 mg/dL (1.8-2.4); POTASSIUM 3.9 mmol/L (3.5-5.1)
[2021-05-05 23:06] LABS: MYCOPLASMA PNEUMONIA IgG 267 U/mL (0-99); MYCOPLASMA PNEUMONIA IgM <770 U/mL (0-769)
[2021-05-06 04:01] VITALS: BP 118/59
[2021-05-06 05:11] LABS: ABSOLUTE EOSINOPHILS 0.1 thou/uL (0.0-0.7); BASOPHILS 0.5 %; EOSINOPHILS 0.9 %; HEMATOCRIT 34.4 % (37.0-47.0); HEMOGLOBIN 11.5 gm/dL (12.0-15.0); LYMPHOCYTES 10.8 %; MCH 31.7 pg (26.0-34.0); MCHC 33.4 g/dL (28.0-37.0); MCV 94.9 fL (80.0-100.0); MONOCYTES 11.2 %; MPV 6.4 fl. (7.2-11.1); NUCLEATED RBCS 0 /100WBC; PLATELET COUNT* 237 thou/uL (150-400); POLYS 76.6 %; RBC 3.63 mil/uL (4.20-5.00); RDW-CV 13.7 % (10.5-14.5); WBC 9.1 thou/uL (4.0-11.0)
[2021-05-06 05:24] LABS: ALBUMIN 2.8 g/dL (3.4-5.0); CALCIUM 9.7 mg/dL (8.5-10.1); CREATININE 1.4 mg/dL (0.6-1.3); MAGNESIUM 1.2 mg/dL (1.8-2.4); POTASSIUM 4.3 mmol/L (3.5-5.1); TOTAL BILIRUBIN 0.4 mg/dL (<0.1-1.0); TOTAL PROTEIN 6.6 g/dL (6.4-8.2)
[2021-05-06 08:40] VITALS: BP 117/58
[2021-05-06 12:00] VITALS: BP 105/45
[2021-05-06 16:00] VITALS: BP 119/57
[2021-05-06 20:00] VITALS: BP 105/54
[2021-05-07 00:34] VITALS: BP 117/60
[2021-05-07 04:18] VITALS: BP 123/72
[2021-05-07 04:46] LABS: ABSOLUTE EOSINOPHILS 0.2 thou/uL (0.0-0.7); ABSOLUTE MONOCYTES 1.1 thou/uL (0.0-1.2); ABSOLUTE NEUTROPHILS 7.1 thou/uL (1.6-8.1); BASOPHILS 0.2 %; EOSINOPHILS 1.8 %; HEMATOCRIT 33.3 % (37.0-47.0); HEMOGLOBIN 11.2 gm/dL (12.0-15.0); LYMPHOCYTES 10.9 %; MCHC 33.6 g/dL (28.0-37.0); MCV 95.4 fL (80.0-100.0); MONOCYTES 11.8 %; MPV 6.6 fl. (7.2-11.1); NUCLEATED RBCS 0 /100WBC; PLATELET COUNT* 239 thou/uL (150-400); POLYS 75.3 %; RBC 3.49 mil/uL (4.20-5.00); RDW-CV 13.7 % (10.5-14.5); WBC 9.4 thou/uL (4.0-11.0)
[2021-05-07 04:52] LABS: CALCIUM 9.3 mg/dL (8.5-10.1); CREATININE 1.1 mg/dL (0.6-1.3); MAGNESIUM 1.9 mg/dL (1.8-2.4); POTASSIUM 4.1 mmol/L (3.5-5.1)
[2021-05-07] MEDS ORDERED: PLAVIX 75 MG TA75 M1 PO (07:21)
[2021-05-07] MEDS ORDERED: LEVOFLOXACIN750 MG PO (07:21)
[2021-05-07 12:00] VITALS: BP 125/66
[2021-05-07] MEDS ORDERED: PREDNISONE 10 M10 MG PO (12:26)
[2021-05-07] MEDS ORDERED: ELIQUIS5 M1 PO (13:44)
== END 2021-05-07 15:25 | DRG 177 ==
LOC: M.ERS 20:28 → M.TBA-ER 22:06 → M.2W 22:06
PROVIDERS: Emergency Medicine; Family Medicine; Internal Medicine; Internal Medicine Critical Care Medicine; Psychiatry & Neurology Neurology; ADMIT Internal Medicine; ATTEND Internal Medicine
PROC: 5A0935A Assistance with Respiratory Ventilation, Less than 24 Consecutive Hours, High Flow/Velocity Cannula (ICD-10-PCS; principal; 2021-05-07)
DX: J15.6 Pneumonia due to other Gram-negative bacteria (principal); N17.0 Acute kidney failure with tubular necrosis; J96.01 Acute respiratory failure with hypoxia; J96.22 Acute and chronic respiratory failure with hypercapnia; E87.1 Hypo-osmolality and hyponatremia; I82.409 Acute embolism and thrombosis of unspecified deep veins of unspecified lower extremity; I42.9 Cardiomyopathy, unspecified; N30.01 Acute cystitis with hematuria; E87.2 Acidosis; Z20.822 Contact with and (suspected) exposure to COVID-19; B96.89 Other specified bacterial agents as the cause of diseases classified elsewhere; E87.5 Hyperkalemia; Z88.8 Allergy status to other drugs, medicaments and biological substances; I25.10 Atherosclerotic heart disease of native coronary artery without angina pectoris; I48.0 Paroxysmal atrial fibrillation; Z79.01 Long term (current) use of anticoagulants; R73.9 Hyperglycemia, unspecified; E83.42 Hypomagnesemia; Z86.718 Personal history of other venous thrombosis and embolism; I11.0 Hypertensive heart disease with heart failure; I50.9 Heart failure, unspecified

== ENCOUNTER 2021-07-03 10:24 | Inpatient (IN) | payer MEDICARE ==
[~2021-07-03] VITALS: Ht 139.7 cm; Wt 101.6 kg
--- NOTE | ~2021-07-03 | PROC ---
[address] [address] PROCEDURE REPORT Name: VICKI BONILLA Room: [address] IN M.R.#: [id number] Admission: 07/03/21 Attend Phys: Greta Borja MD Discharge: Date of : 47 Report #: [id number] THIS REPORT FOR: cc: Jabier Justin MD, K. Gay MD [facility],Medical Records Staff ~ For GI report, please see the Provation report in Perceptive 7 content. By: 1217Medical Records Staff MICHELLE /SUZANNE
[~2021-07-03 10:24] MED LIST changes: +ADVAIR 500-501 EACH INH; +ARICEPT10 M1 PO; +ASA81BEC PO; +ELIQUIS5 M1 PO; +GLIPIZIDE5 MG PO; +KLOR-CON M2020 MEQ PO; +LASIX 40 MG TAB40 MG PO; +LEVO-T50 MCG PO; +LEVOFLOXACIN750 MG PO; +NEURONTIN 300M300 M2 PO; +PERCOCET 7.5-31 EAC1 PO; +PLAVIX 75 MG TA75 M1 PO; +PREDNISONE 10 M10 MG PO; +PROTONIX40 M4 PO; +SINGULAIR 10 MG10 MG PO; +SPIRONOLACTONE25 MG PO; +TIZANIDINE HCL4 M2 PO; +ZYRTEC10 M5 PO
[2021-07-03 10:25] VITALS: BP 193/97
[2021-07-03] MEDS ORDERED: NEURONTIN 300M300 M2 PO (10:32)
[2021-07-03] MEDS ORDERED: SPIRONOLACTONE25 M1 PO (10:39)
[2021-07-03 10:55] LABS: ABSOLUTE EOSINOPHILS 0.1 thou/uL (0.0-0.7); ABSOLUTE LYMPHOCYTES 0.5 thou/uL (0.8-5.3); ABSOLUTE MONOCYTES 0.5 thou/uL (0.0-1.2); BASOPHILS 0.6 %; EOSINOPHILS 2.4 %; HEMATOCRIT 34.3 % (37.0-47.0); HEMOGLOBIN 11.5 gm/dL (12.0-15.0); LYMPHOCYTES 10.2 %; MCH 31.6 pg (26.0-34.0); MCHC 33.5 g/dL (28.0-37.0); MCV 94.6 fL (80.0-100.0); MONOCYTES 9.7 %; MPV 6.1 fl. (7.2-11.1); NUCLEATED RBCS 0 /100WBC; PLATELET COUNT* 350 thou/uL (150-400); POLYS 77.1 %; RBC 3.62 mil/uL (4.20-5.00); WBC 5.2 thou/uL (4.0-11.0)
[2021-07-03 11:06] LABS: CALCIUM 10.4 mg/dL (8.5-10.1); CREATININE 0.8 mg/dL (0.6-1.3)
[2021-07-03 11:17] LABS: ALBUMIN 2.7 g/dL (3.4-5.0); TOTAL BILIRUBIN 0.4 mg/dL (<0.1-1.0); TOTAL PROTEIN 7.8 g/dL (6.4-8.2)
--- NOTE | 2021-07-03 12:58 | EKG ---
[place] [address] ELECTROCARDIOGRAM REPORT Name: VICKI BONILLA Room: [facility]#: [id number] Admission: 07/03/21 Attend Phys: Discharge: Date of : 47 Date of Service: 07/03/21 1044 Report #: [id number] THIS REPORT FOR: //name// [facility] ED Test Date: 2021-07-03 Test Time: 10:44:38 Pat Name: VICKI BONILLA Department: Room: Gender: [place]: : 1945 Requested By: Tang Ambrocio Order Number: [id number] MD: David De La Cruz Measurements Intervals [place] Rate: 102 P: OK: QRS: -37 QRSD: 79 T: 30 QT: 314 QTc: 409 Interpretive Statements Sinus tachycardia Abnormal R-wave progression, late transition Inferior infarct, old possible Baseline wander in lead(s) V2 Compared to ECG 04/27/2021 20:33:34 Sinus rate has increased Ventricular premature complex(es) no longer present Myocardial infarct finding still present Electronically Signed On 07-03-2021 12:58:31 WASTE MACHINE OFFBEARER by David De La Cruz [email or web address] <ELECTRONICALLY SIGNED> By: David De La Cruz MD, FACC 07/03/21 1258 1044 1044 David De La Cruz MD, FAC /EPI
[2021-07-03 17:14] VITALS: BP 157/81
[2021-07-03] MEDS ORDERED: CARVEDILOL12.5 MG PO (18:57)
[2021-07-03 21:30] VITALS: BP 137/83
[2021-07-03 23:09] LABS: INFLUENZA A ANTIGEN Negative (Negative); INFLUENZA B ANTIGEN Negative (Negative)
[2021-07-03 23:14] LABS: PO2 121.4 mmHg (75.0-100.0); pH 7.384 (7.340-7.450)
[2021-07-03 23:20] LABS: PCO2 63.8 mmHg (35.0-45.0)
[2021-07-03 23:28] VITALS: BP 137/83
[2021-07-03 23:41] VITALS: BP 160/76
[2021-07-04 02:15] VITALS: BP 167/72
[2021-07-04 04:28] LABS: ABSOLUTE LYMPHOCYTES 0.6 thou/uL (0.8-5.3); ABSOLUTE MONOCYTES 0.4 thou/uL (0.0-1.2); ABSOLUTE NEUTROPHILS 5.3 thou/uL (1.6-8.1); BASOPHILS 0.1 %; HEMATOCRIT 29.9 % (37.0-47.0); HEMOGLOBIN 9.9 gm/dL (12.0-15.0); LYMPHOCYTES 9.4 %; MCH 31.2 pg (26.0-34.0); MCHC 33.3 g/dL (28.0-37.0); MCV 93.6 fL (80.0-100.0); MONOCYTES 6.7 %; MPV 6.2 fl. (7.2-11.1); NUCLEATED RBCS 0 /100WBC; PLATELET COUNT* 344 thou/uL (150-400); POLYS 83.8 %; RBC 3.19 mil/uL (4.20-5.00); RDW-CV 13.7 % (10.5-14.5); WBC 6.3 thou/uL (4.0-11.0)
[2021-07-04 04:57] LABS: ALBUMIN 2.2 g/dL (3.4-5.0); CALCIUM 9.3 mg/dL (8.5-10.1); CREATININE 1.1 mg/dL (0.6-1.3); MAGNESIUM 1.4 mg/dL (1.8-2.4); POTASSIUM 4.3 mmol/L (3.5-5.1); TOTAL BILIRUBIN 0.3 mg/dL (<0.1-1.0); TOTAL PROTEIN 6.5 g/dL (6.4-8.2)
[2021-07-04 05:57] VITALS: BP 159/82
[2021-07-04 08:00] VITALS: BP 178/100
--- NOTE | 2021-07-04 08:14 | CON ---
[address] [address] CONSULTATION Name: VICKI BONILLA Room: [address] IN M.R.#: [id number] Admission: 07/03/21 Attend Phys: Greta Borja MD Discharge: Date of : 46 Report #: [id number] THIS REPORT FOR: cc: Jabier Justin MD, K. Gay MD Pervez, Adeel MD ~ DATE OF CONSULTATION: 07/03/2021 REQUESTING PHYSICIAN: Dr. Borja. INDICATION FOR CONSULTATION: Pulmonary infiltrates. HISTORY OF PRESENT ILLNESS: This is a 75-year-old female, past medical history is as mentioned below. Vaccinated with J&J Covid 19 vaccine this summer. Past history does include a history of Takotsubo cardiomyopathy with a low left ventricular ejection fraction. The patient had subsequent recovery of left ventricular ejection fraction. The patient was admitted to this hospital back in April. The patient at that time had acute hypercarbic respiratory failure. The patient also had ground-glass opacity/pulmonary infiltrates and the patient was treated with levofloxacin. We did recommend a BiPAP while asleep. The patient, however, was not able to tolerate. The patient is now admitted here again with complaints of increasing shortness of breath and cough. There is not much sputum production. The patient also has had generalized weakness. The patient apparently was transferred to a long-term care facility and eventually went home. She is not describing any upper respiratory complaints or increase in swelling of lower extremities or calf pain. The patient does have various generalized pain complaints and reports a decrease in appetite. She provides a limited history; however, review of systems for 12 points is negative except as mentioned above. PAST MEDICAL HISTORY: Takotsubo cardiomyopathy with left ventricular ejection fraction decreasing to 30% with subsequent normalization of left ventricular ejection fraction; coronary artery disease, status post stents; morbid obesity; chronic back pain; bronchial asthma; tremors; colitis; bilateral knee surgery; tonsillectomy; left leg DVT; hypertension; hyperlipidemia; multiple falls; paroxysmal atrial fibrillation. The patient was considered to be too high risk for anticoagulation; hypercarbic respiratory failure; nontolerant of BiPAP; longstanding narcotic use for back pain. SOCIAL HISTORY: Lifetime nonsmoker. No known history of heavy alcohol use or illegal drug use. CURRENT MEDICATIONS: [place] [address] CONSULTATION Name: VICKI BONILLA Room: [address]#: [id number] Admission: 07/03/21 Attend Phys: Greta Borja MD Discharge: Date of : 47 Report #: [id number] HOME MEDICATIONS: List also in [place] reviewed. FAMILY HISTORY: No pertinent family history. ALLERGIES: THERE ARE VARIOUS ALLERGIES LISTED IN THE RECORD. I AM NOT CERTAIN IF THESE IN FACT ARE TRUE ALLERGIES. SHE DOES REPORT HAVING HAD A RASH WITH SULFAMETHOXAZOLE. THERE HAS BEEN BLURRY VISION OR EYE BURNING WITH DOXYCYCLINE AND ERYTHROMYCIN, LIKELY DO NOT REPRESENT ALLERGY. THE PATIENT ALSO STATES THAT SHE IS ALLERGIC TO THEOPHYLLINE, GUAIFENESIN, AND SALSALATE. PHYSICAL EXAMINATION: GENERAL: She is alert, awake and oriented, did not appear to be in any distress at this time. VITAL SIGNS: Pulse of 109 and a blood pressure of 167/85, saturating 97% on 2 liters nasal cannula. Respiratory rate is 14. She is afebrile with a temperature of 36.3. Body mass index is elevated to 52. HEENT: Head is normocephalic and atraumatic. Pupils are equal and reactive. There is no throat erythema. NECK: Does not show raised JVP, asymmetry, mass or lymph nodes. CHEST: Symmetrical expansion on inspection and palpation. On auscultation, breath sounds are bilaterally equal. There are no added sounds. HEART: Regular. There is no murmur. ABDOMEN: Soft and nontender. EXTREMITIES: Lower extremities show trace edema. There is no calf tenderness. SKIN: Dry and intact. NEUROLOGIC: Moves all extremities bilaterally equally and spontaneously with no focal deficit identified. LABORATORY DATA: The patient's CT chest does show a large right-sided lobar infiltrate. The previous ground-glass/atypical infiltrates, which appear to have improved and this finding is new. The patient's lab work is also in [place] and this is reviewed. ASSESSMENT AND PLAN: 1. Pulmonary infiltrate. There is a large lobar infiltrate in the right lung. This is new compared with the previously seen infiltrates in April. This is consistent with bacterial infection. The patient previously received Levaquin. Therefore, for now, agree with doxycycline as well as Zosyn. We will follow response. We will do several other cultures and serologies. If she fails to improve, then I will have a low threshold of adding more methicillin-resistant Staphylococcus aureus coverage, note that she has previously had renal failure, so I will be cautious in giving her vancomycin. Potentially could be given linezolid; however, she is on Prozac. In case we do give her linezolid, we will [address] [address] CONSULTATION Name: VICKI BONILLA Room: [address] IN [place]#: [id number] Admission: 07/03/21 Attend Phys: Greta Borja MD Discharge: Date of : 47 Report #: [id number] Prozac. 2. Acute on chronic hypercarbic respiratory failure. There is significant pCO2 elevation on previous arterial blood gases, note that she is a lifetime nonsmoker; therefore, this is likely due to morbid obesity as well as the narcotic use. We will go ahead and obtain an arterial blood gas again and see where we stand. The patient regardless would benefit from BiPAP or Trilogy while asleep. Unfortunately, the patient previously was unable to tolerate. If there is a significant drop in pH on the arterial blood gas now, then we will attempt to reinstitute such therapy. Also, note that if the patient fails to respond to antibiotics therapy as above, then she will be a potential candidate for bronchoscopy. However, due to the presence of hypercarbic respiratory failure as well as narcotic use, this will be higher than average risk procedure. We will therefore follow response to antibiotics first. 3. History of chronic systolic heart failure secondary to Takotsubo cardiomyopathy and subsequent recovery of left ventricular ejection fraction. The patient appears to be well hydrated at this time, recommend discontinuing IV fluids. 4. Hypertension/tachycardia. The patient does take carvedilol at home, also takes narcotics. We will see if the blood pressure comes down with reinstitution of the home medications. If not, then suggest considering increasing the dose of her beta freddie. 5. Possible component of bronchospasm. She did receive 1 dose of Solu-Medrol earlier. I will go ahead and give her more steroids. The patient already is on low dose Xopenex. I did not change this at this time considering that she is not actively wheezing on exam. She will need more nebulized bronchodilators. We will see if heart rate and blood pressures come down otherwise I would still favor giving her more nebulized bronchodilators while increasing the dose of her beta freddie at the same time if needed. 6. Morbid obesity, likely has underlying obstructive sleep apnea as well. 7. History of diabetes. Blood glucose control per primary service. 8. History of hyponatremia, had significant hyponatremia during the last hospitalization. Sodium is towards the lower end of normal range at 133 at this time. 9. Long-term narcotic use. Thanks for this consultation. <ELECTRONICALLY SIGNED> By: Balaji Hays MD 07/04/21 0814 1519 1955Asofia Hays MD /nt
[2021-07-04 12:57] LABS: CALCIUM 9.5 mg/dL (8.5-10.1); CREATININE 1.1 mg/dL (0.6-1.3); MAGNESIUM 2.4 mg/dL (1.8-2.4); POTASSIUM 4.4 mmol/L (3.5-5.1)
[2021-07-04 13:04] LABS: APTT 28.6 Seconds (25.0-31.3); PROTIME 10.4 Seconds (9.20-11.50)
[2021-07-04 19:15] VITALS: BP 110/50
[2021-07-04 21:46] VITALS: BP 124/51
[2021-07-04 23:55] VITALS: BP 120/55
[2021-07-05 04:00] VITALS: BP 117/75
[2021-07-05 04:20] LABS: HEMATOCRIT 30.4 % (37.0-47.0); HEMOGLOBIN 9.9 gm/dL (12.0-15.0); MCH 31.4 pg (26.0-34.0); MCHC 32.7 g/dL (28.0-37.0); MCV 95.9 fL (80.0-100.0); MPV 6.3 fl. (7.2-11.1); RBC 3.17 mil/uL (4.20-5.00); RDW-CV 13.8 % (10.5-14.5); WBC 7.9 thou/uL (4.0-11.0)
[2021-07-05 04:36] LABS: ALBUMIN 2.5 g/dL (3.4-5.0); CALCIUM 9.3 mg/dL (8.5-10.1); CREATININE 1.3 mg/dL (0.6-1.3); POTASSIUM 4.8 mmol/L (3.5-5.1); TOTAL BILIRUBIN 0.3 mg/dL (<0.1-1.0); TOTAL PROTEIN 6.7 g/dL (6.4-8.2)
[2021-07-05 08:29] VITALS: BP 133/72
[2021-07-05 13:16] VITALS: BP 126/60
[2021-07-05 17:29] VITALS: BP 139/70
[2021-07-05 20:00] VITALS: BP 117/42
[2021-07-06 00:51] VITALS: BP 142/86
[2021-07-06 05:00] VITALS: BP 147/86
[2021-07-06 05:05] LABS: CALCIUM 9.1 mg/dL (8.5-10.1); CREATININE 1.2 mg/dL (0.6-1.3); MAGNESIUM 1.8 mg/dL (1.8-2.4); POTASSIUM 4.7 mmol/L (3.5-5.1)
[2021-07-06 08:00] VITALS: BP 154/86
[2021-07-06 12:24] VITALS: BP 127/58
[2021-07-06 16:00] VITALS: BP 126/70
[2021-07-06 19:35] VITALS: BP 136/62
[2021-07-06 22:06] LABS: MYCOPLASMA PNEUMONIA IgG 241 U/mL (0-99); MYCOPLASMA PNEUMONIA IgM <770 U/mL (0-769)
[2021-07-07] VITALS (7 sets, daily range): BP systolic 99–142; BP diastolic 41–76
[2021-07-07 04:32] LABS: HEMATOCRIT 30.8 % (37.0-47.0); HEMOGLOBIN 9.9 gm/dL (12.0-15.0); MCH 31.3 pg (26.0-34.0); MCHC 32.3 g/dL (28.0-37.0); MCV 96.7 fL (80.0-100.0); MPV 6.3 fl. (7.2-11.1); RBC 3.18 mil/uL (4.20-5.00); RDW-CV 14.3 % (10.5-14.5); WBC 6.3 thou/uL (4.0-11.0)
[2021-07-07 04:46] LABS: ALBUMIN 2.4 g/dL (3.4-5.0); CALCIUM 9.4 mg/dL (8.5-10.1); CREATININE 1.2 mg/dL (0.6-1.3); MAGNESIUM 1.5 mg/dL (1.8-2.4); POTASSIUM 3.9 mmol/L (3.5-5.1); TOTAL BILIRUBIN 0.3 mg/dL (<0.1-1.0); TOTAL PROTEIN 6.3 g/dL (6.4-8.2)
[2021-07-08] VITALS: BP 110/50
[2021-07-08 04:00] VITALS: BP 110/37
[2021-07-08 04:13] LABS: ABSOLUTE EOSINOPHILS 0.1 thou/uL (0.0-0.7); ABSOLUTE LYMPHOCYTES 1.1 thou/uL (0.8-5.3); ABSOLUTE MONOCYTES 0.7 thou/uL (0.0-1.2); ABSOLUTE NEUTROPHILS 4.7 thou/uL (1.6-8.1); BASOPHILS 0.3 %; EOSINOPHILS 1.4 %; HEMATOCRIT 31.4 % (37.0-47.0); HEMOGLOBIN 10.3 gm/dL (12.0-15.0); LYMPHOCYTES 16.2 %; MCH 31.3 pg (26.0-34.0); MCHC 32.8 g/dL (28.0-37.0); MCV 95.2 fL (80.0-100.0); MONOCYTES 11.2 %; MPV 6.4 fl. (7.2-11.1); NUCLEATED RBCS 0 /100WBC; PLATELET COUNT* 291 thou/uL (150-400); POLYS 70.9 %; RDW-CV 14.3 % (10.5-14.5); WBC 6.6 thou/uL (4.0-11.0)
[2021-07-08 04:24] LABS: CALCIUM 9.3 mg/dL (8.5-10.1); CREATININE 1.3 mg/dL (0.6-1.3); MAGNESIUM 1.6 mg/dL (1.8-2.4); POTASSIUM 3.8 mmol/L (3.5-5.1)
[2021-07-08 08:00] VITALS: BP 119/41
[2021-07-08 12:33] VITALS: BP 124/55
[2021-07-08 20:10] VITALS: BP 113/42
[2021-07-09] VITALS: BP 125/65
[2021-07-09 02:30] LABS: ABSOLUTE EOSINOPHILS 0.2 thou/uL (0.0-0.7); ABSOLUTE LYMPHOCYTES 1.2 thou/uL (0.8-5.3); ABSOLUTE MONOCYTES 0.8 thou/uL (0.0-1.2); ABSOLUTE NEUTROPHILS 5.3 thou/uL (1.6-8.1); BASOPHILS 0.3 %; EOSINOPHILS 2.7 %; HEMATOCRIT 30.6 % (37.0-47.0); HEMOGLOBIN 10.1 gm/dL (12.0-15.0); LYMPHOCYTES 16.3 %; MCH 31.2 pg (26.0-34.0); MCHC 32.9 g/dL (28.0-37.0); MCV 94.6 fL (80.0-100.0); MONOCYTES 10.4 %; MPV 6.6 fl. (7.2-11.1); NUCLEATED RBCS 0 /100WBC; PLATELET COUNT* 277 thou/uL (150-400); POLYS 70.3 %; RBC 3.24 mil/uL (4.20-5.00); RDW-CV 14.5 % (10.5-14.5); WBC 7.6 thou/uL (4.0-11.0)
[2021-07-09 03:07] LABS: ALBUMIN 2.4 g/dL (3.4-5.0); CALCIUM 9.1 mg/dL (8.5-10.1); CREATININE 1.2 mg/dL (0.6-1.3); MAGNESIUM 1.7 mg/dL (1.8-2.4); POTASSIUM 3.8 mmol/L (3.5-5.1); TOTAL BILIRUBIN 0.3 mg/dL (<0.1-1.0)
[2021-07-09 04:00] VITALS: BP 130/58
[2021-07-09 08:00] VITALS: BP 124/49
[2021-07-09 12:00] VITALS: BP 155/65
[2021-07-09 16:00] VITALS: BP 152/79
[2021-07-09 20:00] VITALS: BP 141/62
[2021-07-10 00:45] VITALS: BP 117/57
[2021-07-10 04:47] VITALS: BP 120/70
[2021-07-10 05:06] LABS: GLYCOHEMOGLOBIN (HGB A1C) 7.4 % (4.8-5.6)
[2021-07-10 05:41] LABS: CALCIUM 9.5 mg/dL (8.5-10.1); CREATININE 1.1 mg/dL (0.6-1.3); MAGNESIUM 2.1 mg/dL (1.8-2.4); POTASSIUM 4.1 mmol/L (3.5-5.1)
[2021-07-10 08:00] VITALS: BP 113/69
[2021-07-10 08:26] LABS: HEMOGLOBIN 8.6 gm/dL (12.0-15.0); MCH 31.6 pg (26.0-34.0); MCHC 33.3 g/dL (28.0-37.0); MPV 6.8 fl. (7.2-11.1); RBC 2.73 mil/uL (4.20-5.00); RDW-CV 14.6 % (10.5-14.5); WBC 8.6 thou/uL (4.0-11.0)
[2021-07-10 12:12] VITALS: BP 86/41
[2021-07-10 17:48] VITALS: BP 119/53
[2021-07-10 20:00] VITALS: BP 87/51
[2021-07-11] VITALS (7 sets, daily range): BP systolic 62–120; BP diastolic 26–69
[2021-07-11 04:40] LABS: HEMATOCRIT 26.5 % (37.0-47.0); HEMOGLOBIN 8.8 gm/dL (12.0-15.0); MCH 31.8 pg (26.0-34.0); MCHC 33.3 g/dL (28.0-37.0); MCV 95.5 fL (80.0-100.0); RBC 2.78 mil/uL (4.20-5.00); RDW-CV 14.5 % (10.5-14.5); WBC 9.5 thou/uL (4.0-11.0)
[2021-07-11 04:53] LABS: ALBUMIN 2.1 g/dL (3.4-5.0); MAGNESIUM 1.8 mg/dL (1.8-2.4); TOTAL BILIRUBIN 0.3 mg/dL (<0.1-1.0); TOTAL PROTEIN 5.4 g/dL (6.4-8.2)
[2021-07-11 05:12] LABS: CREATININE 2.2 mg/dL (0.6-1.3)
[2021-07-12 00:10] VITALS: BP 102/36
[2021-07-12 04:00] VITALS: BP 104/32
[2021-07-12 05:24] LABS: HEMATOCRIT 26.1 % (37.0-47.0); HEMOGLOBIN 8.7 gm/dL (12.0-15.0); MCH 31.5 pg (26.0-34.0); MCHC 33.3 g/dL (28.0-37.0); MCV 94.6 fL (80.0-100.0); MPV 7.5 fl. (7.2-11.1); RBC 2.76 mil/uL (4.20-5.00); RDW-CV 14.7 % (10.5-14.5); WBC 9.3 thou/uL (4.0-11.0)
[2021-07-12 05:42] LABS: ALBUMIN 2.2 g/dL (3.4-5.0); CALCIUM 8.9 mg/dL (8.5-10.1); CREATININE 1.7 mg/dL (0.6-1.3); MAGNESIUM 1.9 mg/dL (1.8-2.4); POTASSIUM 4.6 mmol/L (3.5-5.1); TOTAL BILIRUBIN 0.3 mg/dL (<0.1-1.0); TOTAL PROTEIN 5.6 g/dL (6.4-8.2)
[2021-07-12 09:20] VITALS: BP 133/53
[2021-07-12 12:00] VITALS: BP 131/64
--- NOTE | 2021-07-12 14:07 | PATH ---
[place] [address] PATHOLOGY RPT PROCEDURE Name: LETITIA BONILLA Room: [address] IN M.R.#: [id number] Admission: 07/03/21 Date of : 47 Discharge: Report #: [id number] Path Case #: [id number] [facility] Accession Number: [id number] . 01 Material submitted: . gastrointestinal site - PROXIMAL GASTRIC EROSION- R/O H. PYLORI. Modifiers: proximal . 01 Clinical history: . EGD IN OR GASTRITIS . 02 Diagnosis: Proximal gastric erosions: - Mild chronic active gastritis compatible with reactive gastropathy (chemical gastritis) in association with abundant mucosal vaguely crystalline, non-birefringent yellow-brown pigmented foreign material suggestive of medication. (BRIDGETT:[facility]; 07/12/2021) QTP 07/12/2021 1251 Local . 02 Comment: Negative for granulomas, Helicobacter pylori organisms and dysplasia. (BRIDEGTT:[facility]; 07/12/2021) . Special stain: H. pylori immuno . 02 Electronically signed: . Jone St MD, Pathologist NPI- [id number] . 01 Gross description: . The specimen is received in formalin, labeled "Letitia Bonilla, proximal gastric erosions R/O H. pylori". Received are 4 segments of pale brito tissue ranging in size from 0.3-0.4 cm in greatest dimensions. The specimen is entirely submitted in cassette A1. ([facility]; 07/11/2021) NRI/NRI 07/11/2021 1423 Local . 02 Pathologist provided ICD-10: K29.50 . 02 CPT . 625501, [id number] Specimen Comment: A courtesy copy of this report has been sent to [phone] Specimen Comment: [id number], Specimen Comment: Report sent to , DR PENG / [place] [address] PATHOLOGY RPT PROCEDURE Name: LETITIA BONILLA Room: [address] ADM IN .R.#: [id number] Admission: 07/03/21 Date of : 47 Discharge: Report #: [id number] Path Case #: [id number] Performed at: [address], [place], [place] [id number] MD Lorne Stahl MD Phone: [phone] Performed at: 02 [facility] [address], [place], [place] [id number] MD Jone [address] MD Phone: [phone]
[2021-07-12 16:00] VITALS: BP 116/59
--- NOTE | 2021-07-12 17:23 | CON ---
[address] [address] CONSULTATION Name: VICKI BONILLA Room: [address] IN M.R.#: [id number] Admission: 07/03/21 Attend Phys: Greta Borja MD Discharge: Date of : 47 Report #: [id number] THIS REPORT FOR: cc: Jabier Justin MD, K. Gay MD Namin, Farid M. MD ~ cc: Greta Borja MD DATE OF CONSULTATION: 07/08/2021 REFERRING PHYSICIAN: Greta Borja MD INDICATION FOR CONSULT: Persistent nausea, vomiting. The patient also reports dysphagia type symptoms. HISTORY OF PRESENT ILLNESS: This is a 75-year-old female with history of COPD and diabetes. The patient presented to hospital on 07/03/2021 with shortness of air. She was found to have pneumonia for which she has received IV antibiotics. The patient currently reports some nausea and occasional vomiting. She also reports early satiety and dysphagia to solids. She has been taking PPI for a long time for gastroesophageal reflux symptoms. The patient's last hemoglobin A1c several months ago was 7.5. She also takes pain medication chronically. ALLERGIES: SIGNIFICANT TO SALICYLATE, THEOPHYLLINE, DOXYCYCLINE, ERYTHROMYCIN, GUAIFENESIN, SULFAMETHOXAZOLE. MEDICATIONS: Please refer to MAR. PAST MEDICAL HISTORY: As stated above. The patient also has poorly controlled diabetes, chronic pain, ____, iron deficiency, dyslipidemia, COPD requiring 2 liters of O2 at home. She has had history of colitis, breast reduction, carpal tunnel syndrome, left knee surgery, tonsillectomy, arthritis, CHF, history of cardiac catheterization with stenting and right foot surgery for hammertoe. PHYSICAL EXAMINATION: VITAL SIGNS: Reveals blood pressure of 119/41, respirations 18, pulse 76, temperature 97.4. LUNGS: Clear. CARDIOVASCULAR: Regular. ABDOMEN: Large, soft, nontender, nondistended. Bowel sounds are positive. NEUROLOGIC: The patient is alert and oriented x 3. LABORATORY DATA: Reveals sodium of 138, potassium is 3.8, BUN is 36, creatinine is 1.3, glucose is 85, lipase 172. Liver functions are [place] [address] CONSULTATION Name: VICKI BONILLA Room: [address] IN [facility].#: [id number] Admission: 07/03/21 Attend Phys: Greta Borja MD Discharge: Date of : 47 Report #: [id number] INR on 07/04 was 1.0. WBC is 3.3 with hemoglobin of 10.3 and platelets of 291. IMAGING: Chest x-ray was obtained, which showed improvement in the chest with no new processes, residual basilar infiltrates noted. ASSESSMENT AND PLAN: The patient with history of diabetes, which is poorly controlled based on her hemoglobin A1c of 7.5 while ago. She also has chronic back pain for which she is taking pain medication regularly. Finally, she has GERD for which she is on PPI, but reports dysphagia type symptoms. We will proceed with upper endoscopy with dilation of the esophagus and I will also obtain a hemoglobin A1c. If there was no evidence of partial gastric outlet obstruction, we may consider putting her on a motility agent i.e., Reglan. <ELECTRONICALLY SIGNED> By: Nelsy Issa MD 07/12/21 1723 1043 1116Nelsy Issa MD /nt
[2021-07-12 20:00] VITALS: BP 124/60
[2021-07-13 00:42] VITALS: BP 132/54
[2021-07-13 04:00] VITALS: BP 135/73
[2021-07-13 04:10] LABS: CALCIUM 9.1 mg/dL (8.5-10.1); CREATININE 1.1 mg/dL (0.6-1.3); MAGNESIUM 2.1 mg/dL (1.8-2.4); POTASSIUM 4.5 mmol/L (3.5-5.1)
[2021-07-13 04:29] LABS: HEMATOCRIT 25.4 % (37.0-47.0); HEMOGLOBIN 8.4 gm/dL (12.0-15.0); MCH 31.8 pg (26.0-34.0); MCHC 33.3 g/dL (28.0-37.0); MCV 95.5 fL (80.0-100.0); MPV 7.4 fl. (7.2-11.1); RBC 2.66 mil/uL (4.20-5.00); RDW-CV 14.5 % (10.5-14.5); WBC 8.5 thou/uL (4.0-11.0)
[2021-07-13 08:00] VITALS: BP 147/68
[2021-07-13 12:19] VITALS: BP 109/74
[2021-07-13 16:03] VITALS: BP 120/49
[2021-07-13 20:00] VITALS: BP 129/57
[2021-07-14 00:33] VITALS: BP 127/57
[2021-07-14 04:05] LABS: HEMATOCRIT 28.3 % (37.0-47.0); HEMOGLOBIN 9.3 gm/dL (12.0-15.0); MCH 31.5 pg (26.0-34.0); MCHC 32.8 g/dL (28.0-37.0); MCV 95.9 fL (80.0-100.0); MPV 7.5 fl. (7.2-11.1); RBC 2.95 mil/uL (4.20-5.00); RDW-CV 15.5 % (10.5-14.5); WBC 7.6 thou/uL (4.0-11.0)
[2021-07-14 04:18] LABS: ALBUMIN 2.5 g/dL (3.4-5.0); CALCIUM 9.5 mg/dL (8.5-10.1); CREATININE 1.1 mg/dL (0.6-1.3); POTASSIUM 4.7 mmol/L (3.5-5.1); TOTAL BILIRUBIN 0.3 mg/dL (<0.1-1.0); TOTAL PROTEIN 6.1 g/dL (6.4-8.2)
[2021-07-14 04:41] VITALS: BP 140/68
[2021-07-14 08:03] VITALS: BP 142/37
[2021-07-14] MEDS ORDERED: MIDODRINE HCL 55 M1 PO (10:04)
[2021-07-14] MEDS ORDERED: PROTONIX40 M4 PO (10:04)
[2021-07-14] MEDS ORDERED: ALBUTEROL2.5 MG/0.5 INH (10:04)
[2021-07-14] MEDS ORDERED: PULMICORT0.5 MG/2 M INH (10:04)
[2021-07-14] MEDS ORDERED: FENTANYL1 EAC4 TRANSDERM (10:04)
[2021-07-14] MEDS ORDERED: PREDNISONE 20 M20 MG PO (10:04)
[2021-07-14] MEDS ORDERED: PERCOCET 7.5-31 EAC1 PO (10:04)
[2021-07-14 11:30] VITALS: BP 128/55
[2021-07-14 16:27] VITALS: BP 143/63
[2021-07-14 20:30] VITALS: BP 160/69
[2021-07-15 00:30] VITALS: BP 131/99
[2021-07-15 04:15] VITALS: BP 103/59
[2021-07-15 08:23] VITALS: BP 122/67
[2021-07-15 12:48] VITALS: BP 173/89
[2021-07-15 18:17] VITALS: BP 163/78
[2021-07-15 20:00] VITALS: BP 142/55
[2021-07-16] VITALS: BP 136/64
[2021-07-16 04:00] VITALS: BP 150/62
[2021-07-16 07:58] VITALS: BP 148/86
[2021-07-16 12:00] VITALS: BP 137/63
[2021-07-16 16:00] VITALS: BP 139/81
[2021-07-17 00:26] VITALS: BP 102/66
[2021-07-17 04:07] LABS: ABSOLUTE BASOPHILS 0.1 thou/uL (0.0-0.2); ABSOLUTE EOSINOPHILS 0.3 thou/uL (0.0-0.7); ABSOLUTE LYMPHOCYTES 1.5 thou/uL (0.8-5.3); ABSOLUTE MONOCYTES 0.8 thou/uL (0.0-1.2); ABSOLUTE NEUTROPHILS 4.8 thou/uL (1.6-8.1); BASOPHILS 1.2 %; EOSINOPHILS 4.2 %; HEMOGLOBIN 9.5 gm/dL (12.0-15.0); LYMPHOCYTES 19.5 %; MCH 31.6 pg (26.0-34.0); MCHC 32.7 g/dL (28.0-37.0); MCV 96.9 fL (80.0-100.0); MONOCYTES 10.2 %; MPV 6.8 fl. (7.2-11.1); NUCLEATED RBCS 0 /100WBC; PLATELET COUNT* 236 thou/uL (150-400); POLYS 64.9 %; RBC 2.99 mil/uL (4.20-5.00); RDW-CV 15.2 % (10.5-14.5); WBC 7.5 thou/uL (4.0-11.0)
[2021-07-17 05:27] LABS: ALBUMIN 2.5 g/dL (3.4-5.0); CREATININE 1.1 mg/dL (0.6-1.3); TOTAL BILIRUBIN 0.3 mg/dL (<0.1-1.0); TOTAL PROTEIN 6.2 g/dL (6.4-8.2)
[2021-07-17 05:36] LABS: POTASSIUM 4.3 mmol/L (3.5-5.1)
[2021-07-17 08:00] VITALS: BP 141/78
[2021-07-17 12:30] VITALS: BP 127/81
== END 2021-07-17 19:00 | DRG 177 ==
LOC: M.ERS 10:24 → M.ORTHSURG 13:14 → M.TBA-ER 13:14 → M.ORTHSURG 23:17 → M.2W 07-14 22:24
PROVIDERS: Family Medicine; Internal Medicine; Internal Medicine Critical Care Medicine; Internal Medicine Gastroenterology; ADMIT Internal Medicine; ATTEND Internal Medicine
DX: J15.6 Pneumonia due to other Gram-negative bacteria (principal); J96.21 Acute and chronic respiratory failure with hypoxia; J96.22 Acute and chronic respiratory failure with hypercapnia; Z68.43 Body mass index [BMI] 50.0-59.9, adult; I50.42 Chronic combined systolic (congestive) and diastolic (congestive) heart failure; N17.9 Acute kidney failure, unspecified; I95.9 Hypotension, unspecified; M54.9 Dorsalgia, unspecified; L89.159 Pressure ulcer of sacral region, unspecified stage; G56.00 Carpal tunnel syndrome, unspecified upper limb; G89.29 Other chronic pain; R29.6 Repeated falls; I11.0 Hypertensive heart disease with heart failure; M19.90 Unspecified osteoarthritis, unspecified site; Z96.653 Presence of artificial knee joint, bilateral; E11.9 Type 2 diabetes mellitus without complications; K52.9 Noninfective gastroenteritis and colitis, unspecified; I25.10 Atherosclerotic heart disease of native coronary artery without angina pectoris; E66.01 Morbid (severe) obesity due to excess calories; J45.909 Unspecified asthma, uncomplicated; I48.0 Paroxysmal atrial fibrillation; E78.5 Hyperlipidemia, unspecified; K21.9 Gastro-esophageal reflux disease without esophagitis; F11.90 Opioid use, unspecified, uncomplicated; E78.00 Pure hypercholesterolemia, unspecified; R53.81 Other malaise; K44.9 Diaphragmatic hernia without obstruction or gangrene; K22.2 Esophageal obstruction; K31.89 Other diseases of stomach and duodenum; Z20.822 Contact with and (suspected) exposure to COVID-19; Z23 Encounter for immunization; Z79.899 Other long term (current) drug therapy; Z95.5 Presence of coronary angioplasty implant and graft; Z86.718 Personal history of other venous thrombosis and embolism; Z88.1 Allergy status to other antibiotic agents; Z88.2 Allergy status to sulfonamides; Z88.8 Allergy status to other drugs, medicaments and biological substances; Z79.84 Long term (current) use of oral hypoglycemic drugs; Z79.01 Long term (current) use of anticoagulants

== ENCOUNTER 2021-08-23 21:46 | Emergency (ER) | payer OTHER ==
[~2021-08-23] VITALS: Ht 165.1 cm; Wt 115.7 kg
[~2021-08-23 21:46] MED LIST changes: +ALBUTEROL2.5 MG/0.5 INH; +CARVEDILOL12.5 MG PO; +FENTANYL1 EAC4 TRANSDERM; +MIDODRINE HCL 55 M1 PO; +PREDNISONE 20 M20 MG PO; +PULMICORT0.5 MG/2 M INH; +SPIRONOLACTONE25 M1 PO
[2021-08-23 22:29] LABS: ABSOLUTE EOSINOPHILS 0.3 thou/uL (0.0-0.7); ABSOLUTE LYMPHOCYTES 0.7 thou/uL (0.8-5.3); ABSOLUTE MONOCYTES 0.6 thou/uL (0.0-1.2); ABSOLUTE NEUTROPHILS 5.4 thou/uL (1.6-8.1); BASOPHILS 0.3 %; HEMATOCRIT 34.7 % (37.0-47.0); HEMOGLOBIN 11.2 gm/dL (12.0-15.0); LYMPHOCYTES 10.3 %; MCH 31.1 pg (26.0-34.0); MCHC 32.3 g/dL (28.0-37.0); MCV 96.3 fL (80.0-100.0); MONOCYTES 8.5 %; MPV 6.7 fl. (7.2-11.1); NUCLEATED RBCS 0 /100WBC; PLATELET COUNT* 205 thou/uL (150-400); POLYS 76.9 %; RDW-CV 14.1 % (10.5-14.5)
[2021-08-23 22:31] LABS: CALCIUM 9.1 mg/dL (8.5-10.1); CREATININE 0.9 mg/dL (0.6-1.3); POTASSIUM 4.5 mmol/L (3.5-5.1)
[2021-08-23 22:42] LABS: ALBUMIN 2.5 g/dL (3.4-5.0); MAGNESIUM 1.6 mg/dL (1.8-2.4); TOTAL BILIRUBIN 0.2 mg/dL (<0.1-1.0); TOTAL PROTEIN 6.5 g/dL (6.4-8.2)
[2021-08-23 23:06] LABS: INFLUENZA A ANTIGEN Negative (Negative); INFLUENZA B ANTIGEN Negative (Negative)
[2021-08-23] MEDS ORDERED: PREDNISONE50 MG PO (23:46)
[2021-08-23] MEDS ORDERED: ALBUTEROL2.5 MG/31 INH (23:46)
[2021-08-23] MEDS ORDERED: NEBULIZER MISCELL (23:46)
[2021-08-24 00:08] VITALS: BP 137/80
--- NOTE | 2021-08-24 12:32 | EKG ---
[place] [address] ELECTROCARDIOGRAM REPORT Name: VICKI BONILLA Room: [facility]#: [id number] Admission: 08/23/21 Attend Phys: Discharge: 08/24/21 Date of : 47 Date of Service: 08/23/212152 Report #: [id number] THIS REPORT FOR: //name// 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: TB : 1945 Requested By: Flory Urias Order Number: [id number] MD: Gustavo Morejon Measurements Intervals [place] Rate: 86 P: HI: QRS: -35 QRSD: 89 T: 12 QT: 390 QTc: 467 Interpretive Statements Sinus rhythm Inferior infarct, old Compared to ECG 07/03/2021 10:44:38 Sinus tachycardia no longer present Myocardial infarct finding still present Electronically Signed On 08-24-2021 12:32:41 WEB DEVELOPMENT CONSULTANT by Gustavo Morejon [email or web address] <ELECTRONICALLY SIGNED> By: Gustavo Morejon MD, FACC 08/24/21 1232 2153 2153 Gustavo Morejon MD, [facility] /EPI
== END 2021-08-24 00:08 | disposition home or self-care (01) ==
LOC: M.ERS 21:46
PROVIDERS: Emergency Medicine
DX: R06.00 Dyspnea, unspecified (principal); Z20.822 Contact with and (suspected) exposure to COVID-19; E11.9 Type 2 diabetes mellitus without complications; E78.00 Pure hypercholesterolemia, unspecified; I11.0 Hypertensive heart disease with heart failure; I50.9 Heart failure, unspecified; I48.91 Unspecified atrial fibrillation; Z98.890 Other specified postprocedural states; Z90.89 Acquired absence of other organs; Z86.718 Personal history of other venous thrombosis and embolism; Z79.82 Long term (current) use of aspirin; Z79.84 Long term (current) use of oral hypoglycemic drugs; Z79.899 Other long term (current) drug therapy; Z79.891 Long term (current) use of opiate analgesic; Z88.2 Allergy status to sulfonamides; Z88.1 Allergy status to other antibiotic agents; Z88.8 Allergy status to other drugs, medicaments and biological substances; Z88.6 Allergy status to analgesic agent

== ENCOUNTER 2021-09-19 15:32 | Inpatient (IN) | payer OTHER ==
[~2021-09-19] VITALS: Ht 139.7 cm; Wt 113.4 kg
[~2021-09-19 15:32] MED LIST changes: +ALBUTEROL2.5 MG/31 INH; +NEBULIZER MISCELL; +PREDNISONE50 MG PO
[2021-09-19 15:35] VITALS: BP 172/96
[2021-09-19 16:11] LABS: ABSOLUTE EOSINOPHILS 0.1 thou/uL (0.0-0.7); ABSOLUTE LYMPHOCYTES 0.9 thou/uL (0.8-5.3); ABSOLUTE NEUTROPHILS 5.8 thou/uL (1.6-8.1); BASOPHILS 0.3 %; EOSINOPHILS 1.7 %; HEMATOCRIT 36.6 % (37.0-47.0); HEMOGLOBIN 12.2 gm/dL (12.0-15.0); LYMPHOCYTES 11.1 %; MCH 31.1 pg (26.0-34.0); MCHC 33.4 g/dL (28.0-37.0); MCV 93.1 fL (80.0-100.0); MONOCYTES 12.5 %; NUCLEATED RBCS 0 /100WBC; PLATELET COUNT* 193 thou/uL (150-400); POLYS 74.4 %; RBC 3.93 mil/uL (4.20-5.00); RDW-CV 13.6 % (10.5-14.5); WBC 7.8 thou/uL (4.0-11.0)
[2021-09-19 16:36] LABS: CALCIUM 8.9 mg/dL (8.5-10.1); CREATININE 0.7 mg/dL (0.6-1.3); POTASSIUM 3.6 mmol/L (3.5-5.1)
[2021-09-19 16:51] LABS: ALBUMIN 3.2 g/dL (3.4-5.0); TOTAL BILIRUBIN 0.4 mg/dL (<0.1-1.0); TOTAL PROTEIN 6.7 g/dL (6.4-8.2)
--- NOTE | 2021-09-19 18:01 | NUR ---
PT DPOA BEDSIDE ASSISTING PATIENT WITH EATING DINNER
[2021-09-19 19:00] VITALS: BP 185/104
[2021-09-19 23:30] VITALS: BP 175/97
[2021-09-20 03:45] VITALS: BP 180/97
[2021-09-20 08:45] LABS: BUN 13 mg/dL (7-18); CALCIUM 8.9 mg/dL (8.5-10.1); CHLORIDE 77 mmol/L (98-107); CREATININE 0.7 mg/dL (0.6-1.3); GLUCOSE 151 mg/dL (70-99); POTASSIUM 3.4 mmol/L (3.5-5.1); SODIUM 122 mmol/L (136-145)
[2021-09-20 09:12] LABS: CO2 > 45 mmol/L (21-32)
--- NOTE | 2021-09-20 09:56 | EKG ---
[place] [address] ELECTROCARDIOGRAM REPORT Name: IRENEVICKI Nitish Room: [place] [address] ADM IN .R.#: [id number] Admission: 09/19/21 Attend Phys: Yolette Martin Discharge: Date of : 47 Date of Service: 09/19/21 1541 Report #: [id number] THIS REPORT FOR: //name// [facility] ED Test Date: 2021-09-19 Test Time: 15:41:35 Pat Name: VICKI BONILLA Department: Room: [facility] Gender: F Art Department Head: EARL : 1945 Requested By: Daniel Alejo Order Number: [id number] MD: Gustavo Morejon Measurements Intervals [place] Rate: 76 P: 45 WV: 179 QRS: -38 QRSD: 85 T: 10 QT: 403 QTc: 454 Interpretive Statements Sinus rhythm Probable left atrial enlargement Abnormal R-wave progression, late transition Inferior infarct, old Compared to ECG 08/23/2021 21:53:50 No significant changes Electronically Signed On 09-20-2021 9:56:27 MONOTYPIST by Gustavo Morejon [email or web address] <ELECTRONICALLY SIGNED> By: Gustavo Morejon MD, FACC 09/20/21 0956 1541 1541 Gustavo Morejon MD, FACC /EPI
--- NOTE | 2021-09-20 10:24 | NUR ---
Pt is admitted to the hospital on 09/19/21 with Hyponatremia and COPD. Pt is alert and oriented x3. Pt reports she lives with her cousin Wendy/DARRYN. Pt reports she is bed bound. She reports she has a hospital bed, oxygen, and Trilogy through [facility]. Pt has a hx of [facility]. Pt has a previous hx of SNF with [facility], [facility], and [place]. Pt fills her prescriptions at [facility] in [place] and reports she has seen her PCP in the last few months. CM to continue to follow for discharge planning.
--- NOTE | 2021-09-20 10:25 | NUR ---
PATIENT TO CT VIA ER CART. OXYGEN ON 2 LITERS PER NC. REPORT TO EDMUNDO TRACEY.
[2021-09-20 11:28] VITALS: BP 150/90
[2021-09-20 14:11] LABS: CALCIUM 9.1 mg/dL (8.5-10.1); CREATININE 0.8 mg/dL (0.6-1.3); POTASSIUM 3.3 mmol/L (3.5-5.1)
[2021-09-20 15:12] VITALS: BP 182/94
[2021-09-20 17:22] VITALS: BP 139/84
[2021-09-20 18:00] VITALS: BP 148/105
[2021-09-20 18:09] LABS: CALCIUM 8.6 mg/dL (8.5-10.1); CREATININE 0.8 mg/dL (0.6-1.3); POTASSIUM 3.3 mmol/L (3.5-5.1)
[2021-09-20 20:00] VITALS: BP 185/94
[2021-09-20 21:52] LABS: CALCIUM 8.6 mg/dL (8.5-10.1); CREATININE 0.9 mg/dL (0.6-1.3); POTASSIUM 3.2 mmol/L (3.5-5.1)
[2021-09-21] VITALS: BP 140/87
[2021-09-21 04:00] VITALS: BP 124/84
[2021-09-21 04:18] LABS: HEMATOCRIT 36.2 % (37.0-47.0); HEMOGLOBIN 12.1 gm/dL (12.0-15.0); MCH 31.2 pg (26.0-34.0); MCHC 33.5 g/dL (28.0-37.0); MCV 93.1 fL (80.0-100.0); MPV 6.7 fl. (7.2-11.1); RBC 3.89 mil/uL (4.20-5.00); WBC 7.1 thou/uL (4.0-11.0)
[2021-09-21 04:47] LABS: ALBUMIN 3.5 g/dL (3.4-5.0); CALCIUM 8.6 mg/dL (8.5-10.1); CREATININE 0.9 mg/dL (0.6-1.3); MAGNESIUM 1.2 mg/dL (1.8-2.4); POTASSIUM 3.1 mmol/L (3.5-5.1); TOTAL BILIRUBIN 0.5 mg/dL (<0.1-1.0); TOTAL PROTEIN 6.8 g/dL (6.4-8.2)
--- NOTE | 2021-09-21 06:30 | NUR ---
ASSUMED PT CARE AT 1915. ADMISSION ASSESSMENT COMPLETED. LABORER PIPELINES IN PLACE, TRACING SR. 2L NC, O2 SAT ABOVE 90%. HOURLY ROUNDING COMPLETED. Q2H REPOSITIONING COMPLETED. CALL LIGHT/KHAN WITHIN REACH. HIGH FALL PRECAUTIONS.
[2021-09-21 08:23] VITALS: BP 185/95
[2021-09-21 12:00] VITALS: BP 104/68
--- NOTE | 2021-09-21 12:01 | NUR ---
PUNCH MOLDER SAW PT, DID NOT PASS BEDSIDE SWALLOW R/T GURGLING. ORDERED NPO UNTIL TOMORROW AND WILL RE-EVAL TOMORROW
--- NOTE | 2021-09-21 13:27 | NUR ---
THIS RN UPDATED PTS DAUGHTER PER PT PERMISSION. ALL QUESTIONS ANSWERED.
--- NOTE | 2021-09-21 13:30 | NUR ---
WOUND CARE: PATIENT SEEN FOR EVALUATION OF SACRAL WOUND. NO OPEN AREAS NOTED. RECOMEND CONTINUE WITH REPOSITIONING AND BARRIER CREAM. PICTURE TAKEN FOR CHART. SKIN ASSESSMENT DONE AND NO OTHER OPEN AREAS NOTED. WILL CONTINUE TO MONITOR AND ASSIST NEEDED. EDUCATION ON WOUND PREVENTION COMPLETED.
--- NOTE | 2021-09-21 14:31 | NUR ---
ORDERS RECEIVED AND COMPUTERIZED DOCUMENTATION REVIEWED. PATIENT IS BED BOUND AND REQUIRES TOTAL ASSIST FOR ALL CARES. UPON MY ARRIVAL INTO PATIENT'S ROOM, SHE CONFIRMED THIS AND INDICATED THAT SHE DID NOT WANT TO HAVE P.T. A RESULT. PT WILL BE DISCHARGED FROM P.T. SERVICES A RESULT. THANK-YOU FOR THIS REFERRAL, OTTONIEL BALTAZAR, MPT
[2021-09-21 16:00] VITALS: BP 147/82
--- NOTE | 2021-09-21 16:17 | NUR ---
PLAN OF CARE: PLAN FOR THE PT TO POSSIBLY RETURN HOME WITH HH WHEN MEDICALLY STABLE. PT/OT EVALS ORDERS AND WILL BE NEEDED TO ASSIST WITH CM D/C PLANNING. CM WILL REMAIN AVAILABLE TO ASSIST AND FOLLOW NEEDED.
--- NOTE | 2021-09-21 18:52 | NUR ---
PT ALERT, ORIENTED HOWEVER IS FORGETFUL AT TIMES. Q2H TURN. INCONTINENT STOOL, LARGE BM THIS SHIFT. INCONTINENT URINE, HOWEVER PUREWICK IN PLACE. PTS COUSIN, ELECTRICIAN JOURNEYMAN WIREMAN, CHERRY WORREID ABOUT PTS NAUSEA AT HOME. PT HAS DENIED NAUSEA WHEN THIS RN ASKED SEVERAL TIMES THROUGHOUT SHIFT. SLABBER TO EVAL TOMORROW FOR DIET RECOMMENDATIONS.
[2021-09-21 20:00] VITALS: BP 98/57
[2021-09-21 22:07] LABS: MAGNESIUM 2.8 mg/dL (1.8-2.4); POTASSIUM 3.6 mmol/L (3.5-5.1)
[2021-09-22] VITALS (7 sets, daily range): BP systolic 159–196; BP diastolic 75–103
[2021-09-22] MEDS ORDERED: CEFDINIR300 MG PO (12:33)
[2021-09-22] MEDS ORDERED: PREDNISONE 10 M10 M1 PO (12:34)
[2021-09-22] MEDS ORDERED: CARVEDILOL3.125 MG PO (15:09)
[2021-09-22] MEDS ORDERED: LISINOPRIL2.5 MG PO (15:09)
--- NOTE | 2021-09-22 15:43 | NUR ---
PLAN OF CARE: PLAN FOR THE PT TO D/C HOME TODAY AND RESUME HH WITH [facility]. CM CALLED TO INFORM PT'S COUSIN/CAREGIVER OF THIS AND SEE WAS IN AGREEMENT, BUT INFORMED OF REQUEST TO SPEAK TO RN TO DISCUSS PT'S CURRENT MEDICAL STATUS.CM ARRANGED [facility] NON-EMERGENT STRETCHER TRANSPORT FOR 1530 FOR THE PT. RN INFORMS THAT D/C CURRENTLY ON-HOLD AT THIS TIME PENING RE-CHECK OF PT'S BP. CM INFORMED RN OF NEED TO REARRANGE [facility] NON-EMERGENT STRETCHER TRANSPORT FOR THE PT SHOULD SHE BE READY TO D/C LATER ON TODAY. CM WILL REMAIN AVAILABLE TO ASSIST AND FOLLOW NEEDED.
[2021-09-23] VITALS: BP 165/93
[2021-09-23 04:00] VITALS: BP 172/80
--- NOTE | 2021-09-23 06:00 | NUR ---
SR ON SALES AND MARKETING EXECUTIVE. CONTINUES ON 1-2L NC. NON-PRODUCTIVE COUGH CHANGED TO PRODUCTIVE OVERNIGHT. PT C/O CHRONIC BACK/NECK PAIN. PRN PAIN MED GIVEN/SEE EMAR FOR DOCUMENTATION. Q2H REPOSITIONING COMPLETED. HIGH FALL PRECAUTIONS IN PLACE.
[2021-09-23 06:23] LABS: CALCIUM 9.1 mg/dL (8.5-10.1); CREATININE 0.7 mg/dL (0.6-1.3); POTASSIUM 3.4 mmol/L (3.5-5.1)
[2021-09-23 08:36] VITALS: BP 175/97
[2021-09-23 11:00] VITALS: BP 167/79
[2021-09-23 12:55] LABS: BE 13.2 mmol/L (-2 to +3); PO2 94.2 mmHg (75.0-100.0); pH 7.472 (7.340-7.450)
[2021-09-23 12:58] LABS: PCO2 53.9 mmHg (35.0-45.0)
--- NOTE | 2021-09-23 16:30 | CON ---
[address] [address] CONSULTATION Name: VICKI BONILLA Room: [address] IN M.R.#: [id number] Admission: 09/19/21 Attend Phys: Gretel Dhillon Discharge: Date of : 47 Report #: [id number] THIS REPORT FOR: cc: Isis Loving Tammy RNP Pervez, Adeel MD ~ DATE OF CONSULTATION: 09/23/2021 Consult has been requested by Dr. Aston Long. INDICATION FOR CONSULTATION: Acute on chronic hypercarbic respiratory failure. HISTORY OF PRESENT ILLNESS: A 76-year-old female with past medical history as mentioned below. This does include a history of morbid obesity as well as obesity hypoventilation syndrome and obstructive sleep apnea. The patient is a lifetime nonsmoker. I have seen her during a previous hospitalization to this hospital back in June. In summary, the patient has a tendency to hypoventilate and therefore has had carbon dioxide retention and therefore, previously recommended setting up a Trilogy or Astral device and if the same is not possible, then a BiPAP while asleep. The patient had improved and subsequently was transferred to a long-term care facility and eventually went home. Unfortunately, she due to financial reasons, never got set up with a positive airway pressure device while asleep. The patient has now declined again and therefore is readmitted, has been here for the last 5 days. She has had increasing shortness of breath, was reported to be bronchospastic upon initial arrival, also appears that she has been fluid overloaded and she has continued to be drowsy during the day as well. The patient is not reported to have had significant sputum production. She is not having chest pain. She does not have any new upper respiratory complaints. The patient provided a limited history, however, review of systems for 12 points is negative except as mentioned above. PAST MEDICAL HISTORY: Chronic hypercarbic respiratory failure secondary to obesity hypoventilation syndrome and obstructive sleep apnea based on clinical history, has had significant pCO2 retention, not known to me as to whether she has had a sleep study previously. Bronchial asthma, Takotsubo cardiomyopathy, left ventricular ejection fraction at one point was decreased to 30% and subsequently normalized; coronary artery disease, status post stents; morbid obesity; chronic back pain and tremors. There is mention of colitis on the records, the type of colitis is not known to me. Bilateral knee surgery, tonsillectomy, hypertension, hyperlipidemia, multiple falls, previously has paroxysmal atrial fibrillation but was considered high risk for anticoagulation, has had use of narcotics for back pain. SOCIAL HISTORY: Lifetime nonsmoker. No known [place] [address] CONSULTATION Name: VICKI BONILLA Room: [address] IN M.R.#: [id number] Admission: 09/19/21 Attend Phys: Gretel Dhillon Discharge: Date of : 47 Report #: [id number] illegal drug use. CURRENT MEDICATIONS: List in [facility] reviewed. HOME MEDICATIONS: List in [facility] reviewed. VACCINATION HISTORY: Received one shot of J and J COVID-19 vaccine and subsequently received Moderna one shot as well. ALLERGIES: THERE ARE MULTIPLE ALLERGIES LISTED ON THE RECORD, THE LIST IS REVIEWED. SHE IS DESCRIBED HAVING BURNING IN EYES OR BLURRY VISION WITH DOXYCYCLINE AND ERYTHROMYCIN, UNLIKELY TO REPRESENT ALLERGY. SHE IS REPORTED TO BE ALLERGIC TO THEOPHYLLINE, GUAIFENESIN AND SALICYLATES. PHYSICAL EXAMINATION: GENERAL: She was markedly drowsy. I was able to arouse her, but she in fact falls asleep between sentences. VITAL SIGNS: She is only on 2 liters nasal cannula, saturating 95% with pulse of 83 and a blood pressure of 167/79, respiratory rate is 16-18. She is afebrile with a temperature of 36.8. HEENT: Head is normocephalic, atraumatic. Pupils are equal and reactive. There is no throat erythema. She has a narrow airway. NECK: Does not show raised JVP, asymmetry, mass or lymph nodes. CHEST: Symmetrical expansion on inspection and palpation. On auscultation, breath sounds are bilaterally equal, but decreased. Expirations are prolonged. I do hear bilateral end expiratory wheezes. HEART: Regular. There is no murmur. ABDOMEN: Soft and nontender. EXTREMITIES: Lower extremities show 1+ edema. There are chronic changes consistent with venous insufficiency. There is some swelling of the left upper extremity as well. SKIN: However, is dry and intact. NEUROLOGIC: Moves all extremities bilaterally equally and spontaneously with no focal deficit identified. LABORATORY DATA: The patient's CTA chest, perfusion scan and chest x-rays as well as venous Dopplers in [facility]. These are reviewed and compared with the chest CT films with the previous CT as well and this is discussed below in the assessment and plan. Lab work in [facility] also reviewed. ASSESSMENT AND PLAN: 1. Acute on chronic hypercarbic respiratory failure. Unfortunately, previously a Trilogy or BiPAP was not set up due to financial reasons. I understand that the patient has a new insurance, I recommend that we [place] [address] CONSULTATION Name: VICKI BONILLA Room: [address] IN .R.#: [id number] Admission: 09/19/21 Attend Phys: Gretel Dhillon Discharge: Date of : 47 Report #: [id number] Trilogy or Astral will be a better option as the patient will benefit from a consistent tidal volume. Meanwhile, I recommend keeping the patient on a BiPAP and AVAPS mode for all periods of sleep as the patient is dozing off at this time. I recommended that we go ahead and place her on now, continue to titrate oxygen. The patient's potassium is low. Some of the hypercarbia is also secondary to metabolic alkalosis secondary to low potassium levels. I recommend correcting the same as well. 2. Bronchial asthma exacerbation/bronchospasm. She does appear to be bronchospastic at this time, although long-term this is not being the primary etiology of her respiratory failure. For now, we will continue with Solu-Medrol as well as nebulized bronchodilators as currently prescribed long-term. She is using DuoNeb 4 times a day in addition to budesonide at home and we will continue the same. Also, continue with Singulair. We can potentially switch her DuoNeb over to longer acting agents, which will be more convenient to use; however, I understand that there may be financial barriers to this. 3. Fluid overload/hypokalemia/past history of Takotsubo cardiomyopathy with subsequent normalization of left ventricular ejection fraction. She does appear to be fluid overloaded at this time. She is oxygenating adequately on 2 liters. Considering that hypercarbia at least partly is due to low potassium, I would recommend bringing the potassium up. I ordered some additional potassium. 4. Obstructive sleep apnea/obesity hypoventilation syndrome. See discussion above. 5. Coronary artery disease, status post stents. Cardiology service on the case. 6. Past history of atrial fibrillation. I understand she has not had a recent recurrence and she was previously considered high risk for anticoagulation. I would defer to the Cardiology service. 7. History of hyponatremia, sodium has come up to 131 and she does have a longstanding history of hyponatremia and sodium earlier was 116, may benefit from a fluid restriction. She has previously been seen by Nephrology. 8. Pulmonary infiltrates. She does have infiltrates on her CT. These in fact look better than the last CT. For now, continue with current antibiotics. I will reassess tomorrow. 9. Deep venous thrombosis prophylaxis. She is on Lovenox. Thanks for this consultation. <ELECTRONICALLY SIGNED> By: Balaji [place] MD 09/23/21 1630 1341 [id number] [place] MD /nt
[2021-09-23 20:00] VITALS: BP 189/95
[2021-09-24 01:55] VITALS: BP 182/93
[2021-09-24 03:30] VITALS: BP 163/86
[2021-09-24 04:30] LABS: HEMATOCRIT 40.9 % (37.0-47.0); HEMOGLOBIN 13.4 gm/dL (12.0-15.0); MCH 30.8 pg (26.0-34.0); MCHC 32.8 g/dL (28.0-37.0); MCV 93.8 fL (80.0-100.0); MPV 6.5 fl. (7.2-11.1); NUCLEATED RBCS 0 /100WBC; PLATELET COUNT* 215 thou/uL (150-400); RBC 4.36 mil/uL (4.20-5.00); RDW-CV 14.2 % (10.5-14.5); WBC 5.4 thou/uL (4.0-11.0)
[2021-09-24 04:49] LABS: ALBUMIN 3.2 g/dL (3.4-5.0); CREATININE 0.9 mg/dL (0.6-1.3); MAGNESIUM 1.5 mg/dL (1.8-2.4); POTASSIUM 3.8 mmol/L (3.5-5.1); TOTAL BILIRUBIN 0.4 mg/dL (<0.1-1.0); TOTAL PROTEIN 6.9 g/dL (6.4-8.2)
[2021-09-24 06:58] LABS: ABSOLUTE LYMPHOCYTES 0.6 thou/uL (0.8-5.3); ABSOLUTE MONOCYTES 0.2 thou/uL (0.0-1.2); ABSOLUTE NEUTROPHILS 4.5 thou/uL (1.6-8.1); PLATELET ESTIMATE ADEQUATE
[2021-09-24 08:00] VITALS: BP 154/87
[2021-09-24 12:00] VITALS: BP 173/96
[2021-09-24 16:00] VITALS: BP 176/106
[2021-09-24 20:00] VITALS: BP 167/76
[2021-09-25 02:53] VITALS: BP 160/74
[2021-09-25 04:42] LABS: ABSOLUTE EOSINOPHILS 0.1 thou/uL (0.0-0.7); ABSOLUTE MONOCYTES 0.9 thou/uL (0.0-1.2); ABSOLUTE NEUTROPHILS 5.2 thou/uL (1.6-8.1); BASOPHILS 0.6 %; EOSINOPHILS 1.1 %; HEMATOCRIT 38.1 % (37.0-47.0); HEMOGLOBIN 12.6 gm/dL (12.0-15.0); LYMPHOCYTES 13.3 %; MCHC 33.1 g/dL (28.0-37.0); MCV 93.6 fL (80.0-100.0); MONOCYTES 13.1 %; MPV 6.7 fl. (7.2-11.1); NUCLEATED RBCS 0 /100WBC; PLATELET COUNT* 213 thou/uL (150-400); POLYS 71.9 %; RBC 4.07 mil/uL (4.20-5.00); RDW-CV 13.9 % (10.5-14.5); WBC 7.2 thou/uL (4.0-11.0)
[2021-09-25 05:10] LABS: CREATININE 1.1 mg/dL (0.6-1.3); POTASSIUM 3.4 mmol/L (3.5-5.1); TOTAL BILIRUBIN 0.3 mg/dL (<0.1-1.0); TOTAL PROTEIN 6.4 g/dL (6.4-8.2)
[2021-09-25 05:25] VITALS: BP 148/78
--- NOTE | 2021-09-25 06:00 | NUR ---
PT CONTINUES ON 1L NC THIS SHIFT. TOLERATED BIPAP FOR APPROX 5 HOURS. SR ON TRANSPORTATION DRIVER. Q2H REPOSITIONING. HOURLY ROUNDING COMPLETED. HIGH FALL PRECAUTIONS IN PLACE.
[2021-09-25 08:00] VITALS: BP 157/74
[2021-09-25 12:01] VITALS: BP 167/83
--- NOTE | 2021-09-25 13:54 | CON ---
[address] [address] CONSULTATION Name: VICKI BONILLA Room: [address] ADM IN M.R.#: [id number] Admission: 09/19/21 Attend Phys: Gretel Dhillon Discharge: Date of : 47 Report #: [id number] THIS REPORT FOR: cc: Isis Loving Tammy RNP Blick, David R. MD [facility] ~ cc: Liana Asher MD DATE OF CONSULTATION: 09/22/2021 CARDIOLOGY CONSULTATION HISTORY OF PRESENT ILLNESS: The patient is a 75-year-old single white female who I was asked to see in the hospital today because of elevated blood pressure. The patient has an extensive and complicated past medical history. Because of her large size and age, she primarily is bedridden. She requires help just simply getting out of bed. She had a cardiac catheterization back in 2014 and has had a previous stent in her LAD. Her last echocardiogram in 2020 showed an ejection fraction of 60%. The patient was last admitted here to [place] in 06/2021 with shortness of breath and pneumonia. She was brought back to the Emergency Room 4 days ago complaining of shortness of breath. She has home oxygen and bronchodilator. She called ambulance and was brought here to [place] and admitted. Cardiology consultation requested. PAST MEDICAL HISTORY: She has had both knees operated on. She had ankle surgery. She has a history of hypertension, diabetes, hyperlipidemia, COPD. CURRENT MEDICATIONS: Consists of the following: She is on midodrine, albuterol, prednisone, fentanyl, oxycodone, Protonix, torsemide, glipizide, aspirin, Prozac, Synthroid, Lipitor, Requip, Zetia. ALLERGIES: SHE IS ON MULTIPLE ALLERGIES INCLUDING SULFA, THEOPHYLLINE, DOXYCYCLINE, ERYTHROMYCIN. FAMILY HISTORY: Her mother had heart disease. SOCIAL HISTORY: She is , lives by herself in [place]. MEDICATIONS: Given by her cousin. No smoking, alcohol abuse. REVIEW OF SYSTEMS: She is overweight. She is 4 feet 7 inches, used to weigh 220 pounds. No history of stroke. She does have COPD. No kidney disease, no cancer. She does snore at night. No chronic skin condition. PHYSICAL EXAMINATION: [place] [address] CONSULTATION Name: VICKI BONILLA Room: [address]#: [id number] Admission: 09/19/21 Attend Phys: Gretel Dhillon Discharge: Date of : 47 Report #: [id number] GENERAL: Revealed an obese elderly female lying in bed. She appeared in no acute distress. VITAL SIGNS: She had a blood pressure of 170/90, pulse is 90. She is afebrile. HEENT: She is anicteric. Conjunctivae pink. Mucosa moist. NECK: Neck veins difficult to assess due to obesity. CHEST: Revealed decreased breath sounds bilaterally. HEART: Regular rate and rhythm, no significant murmur. ABDOMEN: Obese. EXTREMITIES: Had no pitting edema. Dorsalis pedis pulse 3+ bilaterally. SKIN: Cool and dry. NEUROLOGIC: Nonfocal. IMAGING DATA: ECG on admission showed a sinus rhythm, left axis, incomplete right bundle branch block. Her workup, she had a portable chest x-ray on admission that showed cardiomegaly, poor inspiration, some atelectasis, small effusion, infiltrate was noted. She actually had a CT scan of the chest using a PE protocol that showed no pulmonary embolus, consolidation was noted. Calcified coronary arteries. Venous duplex scan of her legs showed no DVT. LABORATORY WORK: Included sodium 123, potassium 3.6. Her sodium is 116, 2 days ago. Urine 11, creatinine 0.9. Her glucose was 247. Liver function studies were normal. High sensitivity troponin was only 22. Her BNP 1710. Her white blood cell count 7.1, hemoglobin 12.1. Her COVID antigen stat test was negative. IMPRESSION AND RECOMMENDATIONS: 1. Hypertension. Blood pressure noted to be elevated despite beta freddie, SAUL inhibitor and Aldactone. I would consider increasing the dose of carvedilol. 2. Diabetes. 3. Previous stent. I would continue aspirin a day. No recent angina. 4. Previous history of atrial fibrillation. No clinical recurrences. 5. Hyperlipidemia. The patient is on a statin drug. 6. Morbid obesity. 7. Chronic obstructive pulmonary disease. The patient on oxygen and bronchodilators. <ELECTRONICALLY SIGNED> By: Neeraj Mercado MD, [facility] 09/25/21 1354 1607 [id number] Mercado MD, [facility] /nt
--- NOTE | 2021-09-25 14:12 | NUR ---
PLAN OF CARE: PLAN REMAINS FOR THE PT TO RETURN HOME WITH [facility] AT D/C. PER PULM PT WILL LIKELY NEED BIPAP VS NON-INVASIVE VENTALATOR AT D/C. CM AWAITING PULM FINAL RECOMMENDATIONS AND ORDER. CM WILL REMAIN AVAILABLE TO ASSIST AND FOLLOW NEEDED.
[2021-09-25 16:07] VITALS: BP 186/97
[2021-09-25 20:30] VITALS: BP 152/76
--- NOTE | 2021-09-25 23:46 | NUR ---
I ASSUMED CARE OF THE PATIENT AT 0700. SHE IS ALERT AND ORIENTED X4 AND IS ON BEDREST. SHE IS REPOSITIONED EVERY 2 HOURS, AND DURING PERICARE FOR INCONT OF B/B. SHE IS ON A LOW AIR LOSS MATTRESS. BED IS IN THE LOW LOCKED POSITION AND CALL LIGHT IS IN REACH. FRIEND IS AT THE BEDSIDE FOR A PORTION OF THE DAY, BUT MISSED ALL PHYSICIANS. SHE WOULD REALLY LIKE TO SPEAK WITH CARDIOLOGY, WHO HAS SIGNED OFF, BUT LEFT A MESSAGE AT THE OFFICE. PRN MEDS ARE GIVEN TO HELP CONTROL BLOOD PRESSURE. BOTTOM IS RED AND BARRIER CREAM IS APPLIED. SHE IS A SETUP FOR MEALS AND IS VERY PICKY. BLOOD GLUCOSE IS MONITORED, BUT ONLY ORAL COVERAGE IS ORDERED. FLUID RESTRICTION IS BEING INFORCED. SHE IS ON 1L OF NC OXYGEN, HOME DOSE IS 1-3L. WILL CONTINUE TO MONITOR. PAIN MEDS ARE GIVEN PRN TID, BUT HOME SCHEDULE IS 0830, 1430 AD 0030. PATIENT'S CAREGIVER DOES NOT FEEL LIKE SHE IS READY TO DISCHARGE AND ADMITS THAT THEY HAVE NO PCP TO MANAGE BLOOD PRESSURE, SO SHE EXPECTS CARDIOLOGY TO DO IT.
[2021-09-26] VITALS (7 sets, daily range): BP systolic 118–178; BP diastolic 69–93
--- NOTE | 2021-09-26 03:27 | NUR ---
PT RESTING QUIETLY. REPOSITIONED Q 2HR EVEN WITH PT REQUESTING NOT TO MOVE. LOW AIR LOSS MATTRESS TO BED. O2 ON PER BIPAP AT HS, HOB ELEVATED. INCONT OF BOWEL AND BLADDER. PERIAREA RED, NO BREAKDOWN NOTED. TELEMETRY ON SHOWING SR. DENIES COMPLAINTS.
--- NOTE | 2021-09-26 04:38 | NUR ---
PATIENT WORE THE BIPAP UNTIL [id number]
[2021-09-26] MEDS ORDERED: COZAAR 50 MG TA50 M1 PO (12:28)
[2021-09-26] MEDS ORDERED: CARVEDILOL12.5 MG PO (12:28)
--- NOTE | 2021-09-26 15:49 | NUR ---
PLAN FOR THE PT TO D/C HOME TODAY AND RESUME HH WITH [facility]. PULM ALSO ORDERED TRILOGY FOR PT. TRILOGY ORDER FAXED TO [facility]. [facility] NON-EMERGENT TRANSPORT ARRANGED FOR 1700. CM WILL REMAIN AVAILABLE TO ASSIST AND FOLLOW NEEDED. [facility] PHONE: [phone]
--- NOTE | 2021-09-26 18:55 | NUR ---
WAITING [facility] TO TRAFFIC ENGINEER PT. CALLED AT 1830 AND [facility] STATED SHE WAS AT THE TOP OF THE LIST
== END 2021-09-26 19:07 | disposition home health service (06) | DRG 177 ==
LOC: M.ERS 15:32 → M.TBA-ER 17:21 → M.2W 17:21
PROVIDERS: Emergency Medicine Emergency Medical Services; Internal Medicine; Internal Medicine Cardiovascular Disease; Internal Medicine Critical Care Medicine; Nurse Practitioner Adult Health; ADMIT Internal Medicine; ATTEND Internal Medicine
PROC: 05HC33Z Insertion of Infusion Device into Left Basilic Vein, Percutaneous Approach (ICD-10-PCS; principal; 2021-09-20)
PROC: 5A09357 Assistance with Respiratory Ventilation, Less than 24 Consecutive Hours, Continuous Positive Airway Pressure (ICD-10-PCS; 2021-09-25)
PROC: 5A09357 Assistance with Respiratory Ventilation, Less than 24 Consecutive Hours, Continuous Positive Airway Pressure (ICD-10-PCS; 2021-09-26)
DX: J15.6 Pneumonia due to other Gram-negative bacteria (principal); J96.22 Acute and chronic respiratory failure with hypercapnia; E87.1 Hypo-osmolality and hyponatremia; J45.901 Unspecified asthma with (acute) exacerbation; F11.20 Opioid dependence, uncomplicated; E66.2 Morbid (severe) obesity with alveolar hypoventilation; Z68.43 Body mass index [BMI] 50.0-59.9, adult; J44.0 Chronic obstructive pulmonary disease with (acute) lower respiratory infection; L89.152 Pressure ulcer of sacral region, stage 2; Z20.822 Contact with and (suspected) exposure to COVID-19; G89.29 Other chronic pain; M54.9 Dorsalgia, unspecified; M19.90 Unspecified osteoarthritis, unspecified site; E78.00 Pure hypercholesterolemia, unspecified; I50.9 Heart failure, unspecified; Z96.653 Presence of artificial knee joint, bilateral; I48.91 Unspecified atrial fibrillation; I25.10 Atherosclerotic heart disease of native coronary artery without angina pectoris; E87.6 Hypokalemia; E11.9 Type 2 diabetes mellitus without complications; I11.0 Hypertensive heart disease with heart failure; S31.000A Unspecified open wound of lower back and pelvis without penetration into retroperitoneum, initial encounter; X58.XXXA Exposure to other specified factors, initial encounter; Y93.89 Activity, other specified; Y92.89 Other specified places as the place of occurrence of the external cause; Y99.8 Other external cause status; Z79.82 Long term (current) use of aspirin; Z79.899 Other long term (current) drug therapy; Z91.19 Patient's noncompliance with other medical treatment and regimen; Z86.718 Personal history of other venous thrombosis and embolism; Z88.2 Allergy status to sulfonamides; Z88.1 Allergy status to other antibiotic agents; Z82.49 Family history of ischemic heart disease and other diseases of the circulatory system; Z95.5 Presence of coronary angioplasty implant and graft